=== PATIENT | female | born 1960 | race Caucasian/White ===

== ENCOUNTER 2018-05-27 00:56 | Outpatient (CLI) | payer OTHER, SELFPAY ==
--- NOTE | 2018-05-27 12:16 | DI.US_ITS ---
SYMPTOMS/DIAGNOSIS: RT LEG LUMP, ? THROMBOPHLEBITIS, SWELLING, M79.89 RIGHT LOWER EXTREMITY ULTRASOUND: The deep veins of the right lower extremity show normal compression augmentation and color flow. No evidence of a deep venous thrombus is seen. The visualized portions of the greater saphenous vein is patent without evidence of thrombus. Color flow is seen within this portion of the greater saphenous vein. There are varicose veins seen in the subcutaneous tissues of the calf. These appear patent with normal blood flow and compression. No thrombus is seen internally. IMPRESSION: No evidence of a right lower extremity deep venous thrombus or superficial thrombophlebitis.
== END 2018-05-27 01:16 ==
PROVIDERS: PCP Family Medicine; Visit Provider Family Medicine
DX: R22.41 Localized swelling, mass and lump, right lower limb (principal); M79.89 Other specified soft tissue disorders
CPT/HCPCS: 93971

== ENCOUNTER 2019-01-26 00:25 | Outpatient (CLI) | payer OTHER, SELFPAY ==
--- NOTE | 2019-01-26 15:30 | DI.MAMMO_ITS ---
SYMPTOMS/DIAGNOSIS: SCREENING, Z12.31 MAMMOGRAM: Mammograms were interpreted according to the usual protocol including computer analysis with CAD system, tomosynthesis and C view imaging. The breasts are heterogeneously dense. No dominant mass or clumped microcalcification is identified in either breast. The current examination is compared with previous examinations including January 2017 and there has been no gross interval change in appearance in comparison with the previous studies. CONCLUSION: No specific evidence of malignancy at this time. Routine screening examinations are suggested at yearly intervals in this age group according to the ACS/ACR guidelines. Category I. Breast density Category C. MQSA ASSESSMENT OF FINDINGS: Negative. Category 1. Patient will receive a letter notifying them of these results. Bi-RADS category C. The breasts are heterogeneously dense, which may obscure small masses.
== END 2019-01-26 00:45 ==
PROVIDERS: PCP Family Medicine; Visit Provider Family Medicine
DX: Z12.31 Encounter for screening mammogram for malignant neoplasm of breast (principal)
CPT/HCPCS: 77063; 77067

== ENCOUNTER 2019-07-29 07:29 | Outpatient (CLI) | payer OTHER, SELFPAY ==
[2019-07-29 07:55] LABS: HCT 42.5 % (36.0-46.0); HGB 13.9 g/dL (12.0-15.5); Mean Corp. HGB Concentration 32.7 g/dL (32.0-36.0); Mean Corpuscular Hemoglobin 31.7 pg (27.0-33.0); Mean Corpuscular Volume 96.8 fL (80-95); Mean Platelet Volume 10.2 fL (8.0-11.0); Platelet Count 261 x1000/uL (130-400); RBC 4.39 m/cumm (4.00-5.20); RBC Distribution Width 12.6 % (11.7-14.6)
[2019-07-29 08:46] LABS: Calculated LDL 100 mg/dL; Cholesterol 190 mg/dL (50-200); Glucose 100 mg/dL (70-100); HDL Cholesterol 76 mg/dL (40-60); Triglyceride 74 mg/dL (30-150)
== END 2019-07-29 07:49 ==
PROVIDERS: PCP Family Medicine; Visit Provider Family Medicine
DX: I48.91 Unspecified atrial fibrillation (principal); R53.83 Other fatigue; R73.9 Hyperglycemia, unspecified
CPT/HCPCS: 36415; 80061; 82947; 85027

== ENCOUNTER 2019-09-18 07:20 | Emergency (ER) | payer OTHER, SELFPAY ==
[2019-09-18 07:26] VITALS: BP 127/80; PULSE 76; RESP 18; TEMP 36.4; O2SAT 97
--- NOTE | 2019-09-18 07:40 | W.ED.GENAD ---
Discharge Plan Disposition Patient Disposition: HOME Condition: Good Discharge Details Chief Complaint: EarProblem Clinical Impression: URI with cough and congestion, Serous otitis media Primary Care Provider: Robb Esparza ED Provider: Arsh Perez Home Meds and New Rx's Prescriptions: Continued metoprolol succinate 50 mg tablet extended release 24 hr 50 mg PO DAILY Qty: 90 RF: 3 sennosides-docusate sodium [Senokot-S] 1 EACH tablet 1 - 2 tab-cap PO HS PRN RF: 0 ergocalciferol (vitamin D2) 2,000 UNIT tablet 2,000 unit PO DAILY RF: 0 aspirin [Aspir-81] 81 MG tablet,delayed release (DR/EC) 81 mg PO DAILY Qty: 90 RF: 0 Prempro 0.625-2.5 mg tablet 1 tab PO DAILY Qty: 90 RF: 3 ibuprofen 600 MG tablet 600 mg PO QID PRN (Reason: PAIN/SWELLING) Qty: 30 RF: 0 Discharge Instructions Instructions: Upper Respiratory Infection (ED) Additional Instructions: Please use ibuprofen or acetaminophen for discomfort. Start retaking the Mucinex to help thin secretions. If not significantly better in the next couple days follow-up with primary care for recheck of ear. If significantly worse with high fever, uncontrolled pain, difficulty breathing, mental status changes please return to ED. Referrals: Robb Esparza. [Primary Care Provider] - Medical Decision Making Patient with viral URI and serous otitis that I am not convinced that is bacterial in nature. A lot of her problem is likely related to eustachian tube dysfunction. She has history of PSVT and cannot take Sudafed or phenylephrine. She had been trying Mucinex but stopped it a few days ago. We will restart that. We will also have her use Tylenol and Motrin for pain and discomfort. If not significantly better in the next couple days we will have her follow-up with primary care for recheck. If significantly worse with high fevers, worsening pain, mental status changes, return to ED. She is understanding and agreeable with plan. HPI General Mode of arrival: ambulatory. Date/Time Provider Initiated Documentation: 09/18/19 07:35. Limitations to Documentation: no limitations. Information obtained by: patient and RN notes reviewed. HPI Narrative: Patient presents to ED with complaint of left ear pain that started within the last 24 hours. She has had a few days of URI with chest congestion, nasal congestion, cough. She thinks she has had fevers but every time she takes her temperature it is normal. She is having no shortness of breath. She has no sore throat. She has no chest pain. Related Data Home Medications Medication Instructions Recorded Confirmed ibuprofen 600 mg PO QID PRN #30 tab 02/08/15 09/18/19 ergocalciferol (vitamin D2) 2,000 unit PO DAILY 03/05/15 09/18/19 sennosides-docusate sodium 1 - 2 tab-cap PO HS PRN tab-cap 03/05/15 09/18/19 [Senokot-S] aspirin [Aspir-81] 81 mg PO DAILY #90 tab-cap 11/30/17 09/18/19 metoprolol succinate 50 mg 50 mg PO DAILY #90 tab 01/21/19 09/18/19 tablet,extended release 24 hr conj estrogen-medroxyprogesterone 1 tab PO DAILY #90 tab-cap 06/14/19 09/18/19 0.625 mg-2.5 mg tablet Previous Rx's Medication Instructions Recorded ibuprofen 600 mg PO QID PRN #30 tab 02/08/15 aspirin [Aspir-81] 81 mg PO DAILY #90 tab-cap 11/30/17 metoprolol succinate 50 mg 50 mg PO DAILY #90 tab 01/21/19 tablet,extended release 24 hr conj estrogen-medroxyprogesterone 1 tab PO DAILY #90 tab-cap 06/14/19 0.625 mg-2.5 mg tablet Allergies Allergy/AdvReac Type Severity Reaction Status Date / Time No Known Allergies Allergy Unverified 09/18/19 07:30 General Stated Complaint: EarProblem KAMI: 4 Review of Systems ENT Ears, Nose, Mouth, and Throat: Reports otalgia, Reports nasal congestion, Reports nasal discharge, Reports sinus pressure and Denies sore throat Cardiovascular Cardiovascular: Denies dyspnea Respiratory Respiratory: Reports cough and Denies dyspnea [facility] Medical History PSVT (paroxysmal supraventricular tachycardia) (Acute) Surgical History section Diagnostic Laproscopy [facility]; 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: three or more times per week How often do you get together with friends or relatives?: three or more times per week How often do you attend pentecostal or anabaptism services?: 1-3 times per year Do you belong to any clubs or organized social groups?: yes Panel score (0-1 are the most socially isolated patients): 3 What type of physical activity do you participate in: walking Duration: 15-30 minutes/day Frequency: 1-2 times per week Lucy/Druze: Yazdanism Special lucy needs: No Seatbelt use: always Helmet use: Yes Helmet use: always 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 Normal vitals and room air pulse oximetry. Const: WDWN female in NAD. HEENT: NC/AT. Normal facial exam. Right TM is clear with no fluid. Left TM also clear but definitely has fluid behind the drum with mild erythema. Oropharynx without erythema or exudate. Eyes: Normal conjunctiva and sclera. Neck: Supple. Trachea midline. Very mild anterior adenopathy. Lungs: Normal respiratory effort. Lungs are clear. Cor: RRR without murmur/gallop. Neuro: A+O x 3. CN grossly in tact. Good strength and no focal deficit. Course Vital Signs Vital signs: Vital Signs Temperature 97.5 F L 09/18/19 07:26 Pulse 76 09/18/19 07:26 Respiratory Rate 18 09/18/19 07:26 Blood Pressure 127/80 09/18/19 07:26 Pulse Oximetry 97 09/18/19 07:26 Temperature 97.5 F L 09/18/19 07:26 Temperature Source Temporal Artery Scan 09/18/19 07:26 Pulse 76 09/18/19 07:26 Respiratory Rate 18 09/18/19 07:26 Respiratory Effort Non-Labored 09/18/19 07:34 Blood Pressure 127/80 09/18/19 07:26 Pulse Oximetry 97 09/18/19 07:26 Oxygen Delivery Method Room Air 09/18/19 07:26 Oxygen Flow Rate 0 09/18/19 07:26 Pain Level 3 09/18/19 07:34
== END 2019-09-18 07:59 | disposition home or self-care (01) ==
LOC: ER 07:56
PROVIDERS: Emergency Provider Emergency Medicine; PCP Family Medicine
DX: H65.192 Other acute nonsuppurative otitis media, left ear (principal); J06.9 Acute upper respiratory infection, unspecified; I47.1 Supraventricular tachycardia
CPT/HCPCS: 99282

== ENCOUNTER 2020-09-20 11:45 | Outpatient (REF) | payer OTHER, SELFPAY ==
--- NOTE | 2020-09-20 11:15 | PAPFT_PTH ---
PATIENT: Ashlyn Nava LOC: [facility] U#:[id number] AGE/SX: 60/F ROOM: RE09/20/[address]: Symone Ruggiero DO : 1960 BED: DIS: 09/20/2020 SPEC #: [id number] RECD: 09/20/20 12:48 STATUS: BRYAN REQ #: [id number] ANAIS: 09/20/20 11:[address]: Symone Ruggiero DEPT: [facility] Cytology RECD BY: Corrie Adams ENTERED: 09/20/20 12:49 SP TYPE: PAPFT OTHR DR: Robb Esparza MD Tissues: 1 - CX/ENDOCX FOR PAP SMEARS Procedures: PAP THIN PREP/UVM Screening HPV DNA PROBE Comments: [id number]
== END 2020-09-20 12:05 ==
LOC: LBN 11:45
PROVIDERS: PCP Family Medicine; Visit Provider Obstetrics & Gynecology
DX: Z12.4 Encounter for screening for malignant neoplasm of cervix (principal); Z11.51 Encounter for screening for human papillomavirus (HPV)
CPT/HCPCS: 88142; 87624

== ENCOUNTER 2021-07-10 02:14 | Outpatient (CLI) | payer OTHER, SELFPAY ==
--- NOTE | 2021-07-10 08:15 | DI.MAMMO_ITS ---
Exam(s) MAMMO SCREENING EXAM: MAMMO SCREENING CLINICAL HISTORY: screening,WELL WOMAN EXAM,Z12.39,Z01.419. TECHNIQUE: Bilateral full field digital CC and MLO mammographic images were obtained with 3D tomosyn thesis and utilizing computer aided detection (CAD). COMPARISON: Prior mammograms dating back to 2013, the most recent being January 2019. FINDINGS: Fibroglandular tissue pattern is again noted be moderately dense, this decreasing the sensitivity of the mammogram for finding hidden underlying lesions. Towards the lateral aspect of left breast there is an asymmetric density-possible nodule located 7 cm in from nipple, measuring approximately 10 x 10 millimeters Supa compression view recommended. In the right breast there is an asymmetric nodular density noted medially, located approximately 8 cm in from the nipple and measuring approximately 6 x 6 millimeters. Spot compression view recommended . There are no malignant-appearing microcalcification groups is region or elsewhere in either breast . There is no significant architectural distortion nor skin thickening-retraction. IMPRESSION: Moderately dense bilateral fibroglandular tissue. Suggestion bilateral nodules. Spot compression vi ews as well as ultrasound both breasts recommended. BI-RADS Category 0 - Assessment Incomplete: Need additional imaging evaluation Breast Density - Category C - Heterogeneously dense Breast density Category C or D implies that the patient has dense breast tissue. Dense breast tissue can make it harder to find cancer on a mammogram. Dense breast tissue is also associated with an incr eased risk of breast cancer. This information about the result of the mammogram report was provided to the patient to raise their awareness. Use this report when you speak with the patient about their risks for breast cancer, which includes their family history. At that time, you may recommend additional screening tests (Ultrasoun d or MRI) as these tests may add significant information. A negative radiographic report should not delay biopsy if a dominant or clinically suspicious mass is present. Up to ten percent of cancers are not identified on mammography. A negative report may reinforce clinical impression. Adenosis and dense breasts may obscure an underlying neoplasm. False positive reports average 6 to 10%. Patient will receive a letter notifying them of these results.
== END 2021-07-10 02:34 ==
PROVIDERS: PCP Family Medicine; Visit Provider Obstetrics & Gynecology
DX: Z12.31 Encounter for screening mammogram for malignant neoplasm of breast (principal); R92.8 Other abnormal and inconclusive findings on diagnostic imaging of breast
CPT/HCPCS: 77063; 77067

== ENCOUNTER 2021-07-23 00:57 | Outpatient (CLI) | payer OTHER, SELFPAY ==
--- NOTE | 2021-07-23 14:30 | DI.US_ITS ---
Exam(s) US BREAST LT COMPLETE US BREAST RT COMPLETE MG MAMMO SCREEN CALL BACK BI EXAM: MG MAMMO SCREEN CALL BACK BI and bilateral breast ultrasound CLINICAL HISTORY: F/U MAMMO LT ASYMETRIC DENSITY, ? NODULE,RT BREAST ASYMMETRIC NODULAR DENSI. TECHNIQUE: Craniocaudal and mediolateral oblique Full Field Digital Mammography views of the bilater al breast with Computer Aided Diagnosis followed by Tomosynthesis and bilateral breast ultrasound. COMPARISON: Priors available for comparison. FINDINGS: Mammography/Tomosynthesis: Masses/Architectural Distortion: The well-circumscribed nodule in the outer left breast persists on t he additional views. The nodule in the medial right breast is not persist on the additional views. Microcalcifictions: No suspicious pleomorphic-type are seen. Skin Thickening/Nipple Retraction: None. Bilateral breast US: Echotexture: Normal appearance of the glandular tissue. Shadowing: No suspicious foci. Cyst: In the right breast, the medial half of the breast was evaluated. There is a 0.4 x 0.3 x 0.3 c m septated cyst at the 12 o'clock position 2 cm from the nipple. In the left breast, the outer half of the breast was evaluated. There is a simple 0.3 x 0.3 x 0.4 cm cyst at the 1 o'clock position 2 c m from the nipple. There is a simple cyst measuring 0.9 x 0.4 x 1.1 cm at the 2 o'clock position 3 c m from the nipple. There is a complex cyst measuring 1.2 x 0.6 x 0.9 cm at the 2 o'clock position 3 cm from the nipple. Solid lesions: None seen. Ductal dilation: None. IMPRESSION: 1. No evidence of malignancy is noted. 2. Unless there is more urgent need, follow-up screening mammography is recommended, as per [employer] guidelines. 3. The findings were discussed with the patient on the date of the examination. BI-RADS Category 2 - Benign Findings Breast Density - Category C - Heterogeneously dense Breast density Category C or D implies that the patient has dense breast tissue. Dense breast tissue can make it harder to find cancer on a mammogram. Dense breast tissue is also associated with an incr eased risk of breast cancer. This information about the result of the mammogram report was provided to the patient to raise their awareness. Use this report when you speak with the patient about their risks for breast cancer, which includes their family history. At that time, you may recommend additional screening tests (Ultrasoun d or MRI) as these tests may add significant information. A negative radiographic report should not delay biopsy if a dominant or clinically suspicious mass is present. Up to ten percent of cancers are not identified on mammography. A negative report may reinforce clinical impression. Adenosis and dense breasts may obscure an underlying neoplasm. False positive reports average 6 to 10%. Patient will receive a letter notifying them of these results.
== END 2021-07-23 01:17 ==
PROVIDERS: PCP Family Medicine; Visit Provider Obstetrics & Gynecology
DX: Z12.31 Encounter for screening mammogram for malignant neoplasm of breast (principal); R92.8 Other abnormal and inconclusive findings on diagnostic imaging of breast; N60.11 Diffuse cystic mastopathy of right breast; N60.12 Diffuse cystic mastopathy of left breast
CPT/HCPCS: 76642; 77063; 77067

== ENCOUNTER → 2022-02-27 09:55 | Outpatient (CLI) | payer OTHER, SELFPAY ==
--- NOTE | 2022-02-27 06:45 | DI.RAD_ITS ---
Exam(s) XR CHEST 2V PA LATERAL EXAM: XR CHEST 2V PA LATERAL CLINICAL HISTORY: DYSPNEA ON EXERTION, cough with phlegm,R05.3. TECHNIQUE: 2D digital imaging was performed. COMPARISON: CR PORTABLE CHEST ONE VIEW from 02/23/2017 FINDINGS: 2 views: Bidirectional thoracolumbar scoliosis again noted. This is convex right in the thoracic spine. Chlo ride fusion plate in the lower cervical spine noted, previously present. Heart size is normal. The mediastinum is not widened. Lungs are clear. No infiltrates nor pleural effusions. IMPRESSION: No acute pulmonary findings.No significant change from 02/23/2017 DATA REPOSITORY: RADIATION DOSE DELIVERED:
== END ==
PROVIDERS: PCP Family Medicine; Visit Provider Family Medicine
DX: R05.3 Chronic cough (principal); R06.00 Dyspnea, unspecified
CPT/HCPCS: 71046

== ENCOUNTER 2022-03-16 16:10 | Inpatient (IN) | payer OTHER, SELFPAY ==
[2022-03-16 16:28] VITALS: BP 144/84; PULSE 84; RESP 18; TEMP 36.6; O2SAT 99
--- NOTE | 2022-03-16 17:00 | DI.RAD_ITS ---
Exam(s) XR ABDOMEN FLAT UPRIGHT EXAM: XR ABDOMEN FLAT UPRIGHT CLINICAL HISTORY: bloating/distension. TECHNIQUE: 2D digital imaging was performed. COMPARISON: No exams were available for comparison FINDINGS: Two views-supine and upright: There are air-filled abnormal appearing small bowel loops. Some air is seen in the colon but nevert heless this may represent early developing obstruction. Cannot assess accurately for free air as the top of the right hemidiaphragm is not included in the fi eld of view. No obvious pneumatosis. Scoliosis convex left with rotational component in the lumbar spine. IMPRESSION: ileus versus developing small bowel obstruction. Follow-up upright image recommended which should in clude to a level just above the right hemidiaphragm to ensure that there is no free intraperitoneal a ir. DATA REPOSITORY: RADIATION DOSE DELIVERED:
--- NOTE | 2022-03-16 17:13 | W.ED.GENAD ---
Discharge Plan Disposition Patient Disposition: [facility] INPATIENT Condition: Stable Discharge Details Clinical Impression: Small bowel obstruction Primary Care Provider: Robb Esparza ED Provider: Abhishek Elise Home Meds and New Rx's Prescriptions: No Action sennosides-docusate sodium [Senokot-S] 1 EACH tablet 1 - 2 tab-cap PO HS PRN Label Comments: 01/09/17 not taking JESSICA ergocalciferol (vitamin D2) 2,000 UNIT tablet 2,000 unit PO DAILY aspirin [Aspir-81] 81 MG tablet,delayed release (DR/EC) 81 mg PO DAILY Qty: 90 0RF metoprolol succinate 50 mg tablet extended release 24 hr 50 - 100 mg PO DAILY Qty: 135 3RF Rx Instructions: alternate 50 mg/100 mg qod Prempro 0.625-2.5 mg tablet 1 tab PO DAILY Qty: 90 3RF dextroamphetamine-amphetamine [Adderall] 20 mg tablet 20 mg PO DAILY MDD 1 capsule Qty: 28 0RF ibuprofen 600 MG tablet 600 mg PO QID PRN (Reason: PAIN/SWELLING) Qty: 30 0RF Medical Decision Making 61-year-old female whose past surgical history includes and exploratory laparotomy. She states she was returning home from vacation on the [facility] when yesterday she developed abdominal pain and nausea. She was seen at an outlying emergency department in [facility] earlier this morning where she reports she had laboratory, ultrasound and CT imaging. She was diagnosed with a small bowel obstruction, improved with therapy and was discharged in order to return to home. She states approximately 6 hours ago her symptoms returned with upper abdominal pain nausea and bloating. She arrives to the ER afebrile and interactive. Her presentation is most consistent with bowel obstruction. Given the report of previous work-up earlier in the day, laboratories were obtained and patient referred for x-ray. CBC reveals a white count of 11, hematocrit 46, platelets 279. Chemistries are reassuring. X-ray shows evidence of small bowel obstruction. Case discussed with Dr. Dover. We will proceed with CT imaging. Patient will require admission. HPI General Mode of arrival: ambulatory. Date/Time Provider Initiated Documentation: 03/16/22 16:58. Limitations to Documentation: no limitations. Information obtained by: patient. History of Present Illness 61 year old F presents to the emergency department with the chief complaint of Abdominal bloating and pain with nausea, described as moderate, and is localized to the abdomen. Patient abdomen. Patient started experiencing this hour(s) and it has been constant. No relieving factors improve symptom(s), No exacerbating factors reported . Patient notes loss of appetite; denies fever/chills. Patient did receive the following treatments prior to arrival, none Related Data Home Medications Medication Instructions Recorded Confirmed ibuprofen 600 mg tablet 600 mg PO QID PRN PAIN/SWELLING 02/08/15 03/16/22 #30 tabs ergocalciferol (vitamin D2) 50 mcg 2,000 unit PO DAILY 03/05/15 03/16/22 (2,000 unit) tablet sennosides 8.6 mg-docusate sodium 1 - 2 tab-cap PO HS PRN 03/05/15 03/16/22 50 mg tablet (Senokot-S) aspirin 81 mg tablet,delayed 81 mg PO DAILY #90 tab-caps 11/30/17 03/16/22 release (Aspir-) metoprolol succinate 50 mg 50 - 100 mg PO DAILY #135 tabs 12/30/21 03/16/22 tablet,extended release 24 hr conj estrogen-medroxyprogesterone 1 tab PO DAILY #90 tab-caps 01/13/22 03/16/22 0.625 mg-2.5 mg tablet (Prempro) dextroamphetamine-amphetamine 20 20 mg PO DAILY #28 tabs 02/11/22 03/16/22 mg tablet (Adderall) Previous Rx's Medication Instructions Recorded ibuprofen 600 mg tablet 600 mg PO QID PRN PAIN/SWELLING 02/08/15 #30 tabs aspirin 81 mg tablet,delayed 81 mg PO DAILY #90 tab-caps 11/30/17 release (Aspir-) metoprolol succinate 50 mg 50 - 100 mg PO DAILY #135 tabs 12/30/21 tablet,extended release 24 hr conj estrogen-medroxyprogesterone 1 tab PO DAILY #90 tab-caps 01/13/22 0.625 mg-2.5 mg tablet (Prempro) dextroamphetamine-amphetamine 20 20 mg PO DAILY #28 tabs 02/11/22 mg tablet (Adderall) Allergies Allergy/AdvReac Type Severity Reaction Status Date / Time No Known Allergies Allergy Verified 03/16/22 16:32 General Stated Complaint: Abd Prob KAMI: 2 Review of Systems Narrative: 6 systems reviewed and otherwise negative PFSH All Active Problems (Updated 03/16/22 @ 19:08 by Abhishek Elise MD) Small bowel obstruction (Acute) Breast cancer screening (Acute) Well woman exam with routine gynecological exam (Acute) Overweight (Acute) PSVT (paroxysmal supraventricular tachycardia) (Acute) Atrial fibrillation with rapid ventricular response (Acute) Hypokalemia (Acute) History of snoring (Acute) Well adult exam (Chronic) Surgical History section Diagnostic Laproscopy [facility]; 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 Daughter No problems noted. Social History Smoking/Tobacco Use Status: Never Second Hand Exposure: Yes Smoking risk assessment performed?: Yes Alcohol Intake: current Alcohol Intake frequency: a few times a month Alcohol type: wine Drug use: Never Substance use type: does not use Caregiver/Support person: No Household members: spouse Housing: house Communication Needs: None Do you need help understanding health information?: Never Pets and animals: No Sexually active: Yes Do you think of yourself as: straight/heterosexual Current gender identity: female What is your relationship status?: How often do you talk on the phone with friends or family?: three or more times per week How often do you get together with friends or relatives?: three or more times per week How often do you attend zoroastrianism or zoroastrian services?: 1-3 times per year Do you belong to any clubs or organized social groups?: yes Panel score (0-1 are the most socially isolated patients): 3 What type of physical activity do you participate in: walking Duration: 15-30 minutes/day Frequency: 3-4 times per week Lucy/Alevism: No preference Special lucy needs: No Seatbelt use: always Helmet use: Yes Helmet use: always 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 Pleasant, well groomed, interactive. HEAD: Normocephalic, atraumatic ENT: Mucous membranes moist, oropharynx unremarkable, External ear exam unremarkable EYES: PERRL, EOMI NECK: Full ROM, no YAZAN, no menigismus CHEST/RESP: Nontender, clear to auscultation bilateral, no wheeze/rhonchi/rales CARDIOVASCULAR: RRR, no murmur, rub donna. 2+ Rad pulse bilateral ABDOMEN: Soft, distended, diffusely tender but without rebound present, no mass. Decreased bowel sounds EXT: Full ROM, no edema, no rash Neuro: Grossly normal neurologic exam, conversant, interactive. Psych: Speech fluent, thoughts congruent, affect normal Course Vital Signs Vital signs: Vital Signs Temperature 36.6 C 03/16/22 16:28 Pulse 84 03/16/22 16:28 Respiratory Rate 18 03/16/22 16:28 Blood Pressure 144/84 H 03/16/22 16:28 Pulse Oximetry 99 03/16/22 16:28 Temperature 36.6 C 03/16/22 16:28 Temperature Source Temporal Artery Scan 03/16/22 16:28 Pulse 84 03/16/22 16:28 Respiratory Rate 18 03/16/22 16:28 Respiratory Effort 03/16/22 16:49 Blood Pressure 144/84 H 03/16/22 16:28 Blood Pressure Position Sitting 03/16/22 16:28 Pulse Oximetry 99 03/16/22 16:28 Oxygen Delivery Method Room Air 03/16/22 16:28 Oxygen Flow Rate 0 03/16/22 16:28 Pain Level 8 03/16/22 16:28
[2022-03-16 17:28] LABS: Abs Immature Grans 0.04 10^3/uL (0.0-0.06); Absolute Basophil Count 0.03 10^3/uL (0.0-0.2); Absolute Eosinophil Count 0.11 10^3/uL (0.0-0.7); Absolute Lymphocyte Count 1.04 10^3/uL (1.2-3.4); Basophils % 0.3; HCT 46.8 % (36.0-46.0); HGB 15.5 g/dL (11.2-15.7); Immature Grans % 0.4; Lymphocytes % 9.2; MCHC 33.1 % (32.0-36.0); MCV 97 fL (80-95); MPV 10.2 fL (8.0-11.0); Monocytes % 8.8; Neutrophils % 80.3; Platelet Count 279 10^3/uL (130-400); RBC 4.84 10^6/uL (3.93-5.22); RDW-SD 42.9 fL; WBC 11.34 10^3/uL (4.4-10.8)
[2022-03-16 17:33] LABS: Absolute Neutrophil Count 9.11 10^3/uL (1.2-6.7)
[2022-03-16] MEDS: Ondansetron 4 MG/2 ML VIAL IVP ×2 (17:43→22:06)
[2022-03-16] MEDS: Ketorolac 30 MG/ML VIAL IVP (17:43)
[2022-03-16 17:47] LABS: ALT 27 U/L (14-59); AST 13 U/L (15-37); Albumin 4.3 g/dL (3.4-5.0); Alkaline Phosphatase 66 U/L (46-116); Anion Gap 10.9 mmol/L (3-11); BUN 14 mg/dL (7-18); Bilirubin, Total 1.3 mg/dL (0.2-1.0); CO2 28.1 mmol/L (21.0-32.0); Calcium 9.9 mg/dL (8.5-10.1); Chloride 97 mmol/L (98-107); Estimated GFR 56.75 (mL/min/1.73m2); Glucose 110 mg/dL (74-106); Lipase 52 U/L (73-393); Magnesium 2.2 mg/dL (1.8-2.4); Potassium 3.5 mmol/L (3.5-5.1); Sodium 136 mmol/L (136-145); Total Protein 8.2 g/dL (6.4-8.2)
[2022-03-16 18:06] LABS: Source Nasal/Nares
[2022-03-16 18:16] LABS: Bilirubin Small (Negative); Blood Negative (Negative); Clarity Sl Cloudy (Clear); Glucose Negative (Negative); Ketones 40 mg/dL (Negative); Leukocyte Esterase Negative (Negative); Nitrite Negative (Negative); Specific Gravity >= 1.030 (1.005-1.025); Urobilinogen 0.2 EU/dL (Up TO 0.2); pH 5.5 (5-8)
[2022-03-16 19:00] LABS: COVID-19 PCR Negative (Negative)
--- NOTE | 2022-03-16 19:05 | DI.VRAD_ITS ---
PROCEDURE INFORMATION: Exam: XR Abdomen Exam date and time: 03/16/2022 18:52 Age: 61 years old Clinical indication: Patient HX: Bloating/distension TECHNIQUE: Imaging protocol: Radiologic exam of the abdomen. Views: 2 Views. Upright and supine views. COMPARISON: CT ABD PELVIS WITH CONTRAST 09/27/2015 13:04 FINDINGS: Gastrointestinal tract: Mild gaseous distension of mid small bowel. Normal stool burden in the colon without pathologic dilation. Intraperitoneal space: No free air. Organs: There is either faint contrast being excreted by the left kidney or small stones projecting over left-sided calices. Bones/joints: Moderate lumbar levoscoliosis. IMPRESSION: Small bowel distension can be seen in developing ileus or obstruction. Dictated and Authenticated by: Angy Barrow MD. Ordering:KAISER Weiss MD
[2022-03-16] MEDS: Omnipaque 350 MG/ML 100 ML BTL IJ (19:21)
[2022-03-16] MEDS: Normal Saline 1,000 ML 125 ML IV (21:05)
[2022-03-16] MEDS: Normal Saline Flush 10 ML SYR IVP ×2 (21:55→23:57)
[2022-03-16] MEDS: MORPHine 2 MG/ML SYR IVP (21:56)
[2022-03-16] MEDS: Enoxaparin 40 MG/0.4 ML SYR SC (22:48)
[2022-03-16 22:49] VITALS: BP 117/71; PULSE 65; RESP 16; TEMP 36.8; O2SAT 96
[2022-03-16 22:57] VITALS: BP 117/71; PULSE 65
[2022-03-16 23:03] VITALS: BP 117/71; PULSE 65; RESP 16; TEMP 36.8; O2SAT 96
--- NOTE | 2022-03-16 23:07 | NUR.NOTE ---
Andrew Dean PT DAUGHTER WANTS HER PHONE NUMBER LEFT [phone] Nursing Note:
[2022-03-16] MEDS: Lactated Ringers 1,000 ML 125 ML IV (23:27)
[2022-03-16] MEDS: ACETAMINOPHEN 1,000 MG/100 ML BTL 400 MG IVPB (23:57)
[2022-03-17] VITALS (15 sets, daily range): BP systolic 115–149; BP diastolic 65–95; PULSE 66–101; RESP 14–18; TEMP 36.6–37.5; O2SAT 95–97
[2022-03-17] MEDS: MORPHine 2 MG/ML SYR IVP ×2 (04:06→06:58)
[2022-03-17 06:23] LABS: Anion Gap 9.9 mmol/L (3-11); BUN 18 mg/dL (7-18); CO2 26.1 mmol/L (21.0-32.0); CREATININE 0.8 mg/dL (0.55-1.02); Calcium 8.9 mg/dL (8.5-10.1); Chloride 99 mmol/L (98-107); Glucose 112 mg/dL (74-106); Magnesium 1.8 mg/dL (1.8-2.4); Potassium 3.7 mmol/L (3.5-5.1); Sodium 135 mmol/L (136-145)
[2022-03-17] MEDS: Metoprolol 5 MG/5 ML VIAL IVP ×3 (07:45→19:45)
[2022-03-17] MEDS: Normal Saline Flush 10 ML SYR IVP ×4 (07:46→23:30)
[2022-03-17] MEDS: Lactated Ringers 1,000 ML 125 ML IV ×2 (08:02→18:47)
--- NOTE | 2022-03-17 11:08 | W.PM.HP.N ---
Date of service: 03/17/22 Time of Service: 11:08 Assessment and Plan Assessment and plan (1) Small bowel obstruction: Status: Acute Assessment and plan: NGT placement gastrograffin in am supportive care should resolve w/ conservative management. No fever/elevated WBC/peritonitis History of Present Illness Narrative: Patient had a stat and has vertical midline scar. She has had problems with adhesions in the past. She had a laparoscopy and lysis of adhesions in the past. This is otherwise her first bowel obstruction. She had been on medication and do a long distance drive, which she normally does not do. She started having pain and bloating and nausea on Thursday. She came to the ER on Thursday and had a CT scan in [facility], which showed a bowel obstruction. She drove back to [facility] H/VT. Flatplate ER of the abdomen shows continued bowel obstruction. She is not passing gas today. She is not vomited. She has not wanted an NG tube placed. She still feels very distended and nauseous and feel like she needs to vomit. We did have a discussion about what NG tube do and why they are necessary. She does have a few BS, and I think her obstruction will resolved w/ conservative care. 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 Daughter No problems noted. Social History Smoking/Tobacco Use Status: Never Second Hand Exposure: Yes Smoking risk assessment performed?: Yes Alcohol Intake: current Alcohol Intake frequency: a few times a month Alcohol type: wine Drug use: Never Substance use type: does not use Caregiver/Support person: No Household members: spouse Housing: house Communication Needs: None Do you need help understanding health information?: Never Pets and animals: No Sexually active: Yes Do you think of yourself as: straight/heterosexual Current gender identity: female What is your relationship status?: How often do you talk on the phone with friends or family?: three or more times per week How often do you get together with friends or relatives?: three or more times per week How often do you attend oriental orthodox or sabianist services?: 1-3 times per year Do you belong to any clubs or organized social groups?: yes Panel score (0-1 are the most socially isolated patients): 3 What type of physical activity do you participate in: walking Duration: 15-30 minutes/day Frequency: 3-4 times per week Lucy/Yazdanism: No preference Special lucy needs: No Seatbelt use: always Helmet use: Yes Helmet use: always Drive intox or ride w/intox driver examiner: No Do you feel safe at home: Yes Do you feel safe in your relationship?: Yes Meds Allergies and Home Medications Allergies Allergy/AdvReac Type Severity Reaction Status Date / Time No Known Allergies Allergy Verified 03/16/22 16:32 Home Medications Medication Instructions Recorded Confirmed Type ibuprofen 600 mg tablet 600 mg PO QID PRN PAIN/SWELLING 02/08/15 03/16/22 Rx #30 tabs ergocalciferol (vitamin D2) 50 mcg 2,000 unit PO DAILY 03/05/15 03/16/22 History (2,000 unit) tablet sennosides 8.6 mg-docusate sodium 1 - 2 tab-cap PO HS PRN 03/05/15 03/16/22 History 50 mg tablet (Senokot-S) aspirin 81 mg tablet,delayed 81 mg PO DAILY #90 tab-caps 11/30/17 03/16/22 Rx release (Aspir-) metoprolol succinate 50 mg 50 - 100 mg PO DAILY #135 tabs 12/30/21 03/16/22 Rx tablet,extended release 24 hr conj estrogen-medroxyprogesterone 1 tab PO DAILY #90 tab-caps 01/13/22 03/16/22 Rx 0.625 mg-2.5 mg tablet (Prempro) dextroamphetamine-amphetamine 20 20 mg PO DAILY #28 tabs 02/11/22 03/16/22 Rx mg tablet (Adderall) Exam Narrative Exam Narrative: PHYSICAL EXAM GENERAL APPEARANCE: Alert, healthy appearance, oriented, in no acute distress SKIN: No rashes.? No breakdown HYDRATION: Well hydrated HEAD, EYES, EARS, NECK, THROAT: Head is normocephalic, pupils equal, round, reactive to light and accommodation, ocular movement intact, sclera clear and no jaundice. ?Dentition intact. No sore throat.? No jaw pain. NECK: Supple, Trachea midline. No JVD. LUNGS: normal respiration/nl chest excursion. ?Clear to auscultation B/l no R/R/W ?HEART: Regular rate and rhythm, EXTREMITY: No edema or cyanosis? no leg pain, redness, swelling.? No IV infiltration ABDOMEN: RUQ tenderness to palpation, no masses or distention, no hernias. no peritonitis. minimal BS NEURO: no focal neuro deficits. Results Labs Result diagrams: 03/16/22 17:20 03/17/22 05:44 Labs: Laboratory Results - last 24 hr 03/16/22 03/16/22 03/16/22 17:20 17:20 18:00 WBC 11.34 H RBC 4.84 Hgb 15.5 Hct 46.8 H MCV 97 H MCH 32.0 MCHC 33.1 RDW 12.0 Plt Count 279 MPV 10.2 Immature Gran % 0.4 Neutrophils % 80.3 Lymphocytes % 9.2 Monocytes % 8.8 Eosinophils % 1.0 Basophils % 0.3 Nucleated RBC % 0.0 Absolute Neutrophils 9.11 H Absolute Lymphocytes 1.04 L Absolute Monocytes 1.00 H Absolute Eosinophils 0.11 Absolute Basophils 0.03 Sodium 136 Potassium 3.5 Chloride 97 L Carbon Dioxide 28.1 Anion Gap 10.9 BUN 14 Creatinine 1.0 Estimated GFR/1.73 m2 56.75 Glucose 110 H Calcium 9.9 Magnesium 2.2 Total Bilirubin 1.3 H AST 13 L ALT 27 Alkaline Phosphatase 66 Total Protein 8.2 Albumin 4.3 Lipase 52 Urine Color Urine Clarity Urine pH Ur Specific [place] Urine Protein Urine Ketones Urine Blood Urine Nitrite Urine Bilirubin Urine Urobilinogen Ur Leukocyte Esterase Urine Glucose COVID-19 Source Nasal/Nares SARS-CoV-2 (PCR) Negative 03/16/22 03/17/22 18:00 05:44 WBC RBC Hgb Hct MCV MCH MCHC RDW Plt Count MPV Immature Gran % Neutrophils % Lymphocytes % Monocytes % Eosinophils % Basophils % Nucleated RBC % Absolute Neutrophils Absolute Lymphocytes Absolute Monocytes Absolute Eosinophils Absolute Basophils Sodium 135 L Potassium 3.7 Chloride 99 Carbon Dioxide 26.1 Anion Gap 9.9 BUN 18 Creatinine 0.8 Estimated GFR/1.73 m2 >= 60.00 Glucose 112 H Calcium 8.9 Magnesium 1.8 Total Bilirubin AST ALT Alkaline Phosphatase Total Protein Albumin Lipase Urine Color Yellow Urine Clarity Sl Cloudy Urine pH 5.5 Ur Specific [place] >= 1.030 H Urine Protein Negative Urine Ketones 40 H Urine Blood Negative Urine Nitrite Negative Urine Bilirubin Small H Urine Urobilinogen 0.2 Ur Leukocyte Esterase Negative Urine Glucose Negative COVID-19 Source SARS-CoV-2 (PCR) Last Vital Signs Temp 37.1 C 03/17/22 07:40 Pulse 73 03/17/22 07:45 Resp 14 03/17/22 07:40 BP 115/70 03/17/22 07:45 Pulse Ox 95 03/17/22 07:40
[2022-03-17] MEDS: Lidocaine 2% Jelly 5 ML TUBE TP (11:23)
[2022-03-17] MEDS: Normal Saline 1,000 ML 1000 ML IV (11:24)
[2022-03-17] MEDS: ACETAMINOPHEN 1,000 MG/100 ML BTL 400 MG IVPB ×2 (11:38→23:30)
--- NOTE | 2022-03-17 12:15 | DI.RAD_ITS ---
Exam(s) XR ABDOMEN FLAT PLATE EXAM: XR ABDOMEN FLAT PLATE CLINICAL HISTORY: after 1 hour suction- NG placed. TECHNIQUE: 2D digital imaging was performed. COMPARISON: CR,XR XR ABDOMEN FLAT UPRIGHT from 03/16/2022 FINDINGS: Single supine view of the abdomen: There has been interval placement of an NG tube. Distal tip is in the stomach. There is still some air-filled small bowel loops in the central abdomen. This is difficult to compare without an upright view. Also cannot determine if there is free air without an upright view. Scoliosis convex left in the lumbar spine again noted. IMPRESSION: DATA REPOSITORY: RADIATION DOSE DELIVERED:
--- NOTE | 2022-03-17 12:52 | DI.VRAD_ITS ---
Addendum created by Merrill Harris DO on 03/17/2022 12:55:17 PM EDT: Modification to findings and impression as follows: Findings: Tubes, catheters and devices: Esophagogastric tube is present on 1 image and terminates over an expected location of the gastric lumen. This is on the image taken at 12:16:26. The esophagogastric tube is not visualized on the image taken at 12:18:35. Impression: Esophagogastric tube is seen terminating over an expected location of the gastric lumen on 1 image. Possibly removed on follow-up image taken at 12:18:35. Initial report created on 03/17/2022 12:51:57 PM EDT: PROCEDURE INFORMATION: Exam: XR Abdomen Exam date and time: 03/17/2022 12:16 PM Age: 61 years old Clinical indication: Device placement; Gi device; Nasogastric tube; Patient HX: 1 hour post ng tube suction. TECHNIQUE: Imaging protocol: Radiologic exam of the abdomen. Views: Frontal supine view of the abdomen. 1 View. COMPARISON: CR XR ABDOMEN FLAT UPRIGHT 03/16/2022 6:52 PM FINDINGS: Tubes, catheters and devices: Esophagogastric tube terminates over an expected location of the gastric lumen. Lungs: Suspected atelectasis left lung base. Gastrointestinal tract: Nonobstructive bowel gas pattern. Bones/joints: no acute displaced fracture. IMPRESSION: Esophagogastric tube terminates over an expected location of the gastric lumen. Dictated and Authenticated by: Merrill Harris MD. Ordering:YUKI White MD
[2022-03-17] MEDS: Enoxaparin 40 MG/0.4 ML SYR SC (19:45)
[2022-03-18] VITALS (20 sets, daily range): BP systolic 114–154; BP diastolic 78–83; PULSE 73–133; RESP 16–19; TEMP 36.7–38; O2SAT 95–99
--- NOTE | 2022-03-18 | DI.RAD_ITS ---
Exam(s) XR ABDOMEN FLAT PLATE EXAM: XR ABDOMEN FLAT PLATE CLINICAL HISTORY: sbo. TECHNIQUE: 2D digital imaging was performed. COMPARISON: CR XR ABDOMEN FLAT PLATE from 03/18/2022 FINDINGS: 3 views NG tube has been reinserted. Stomach is distended. Oral contrast seen in duodenal and jejunal loops which are slightly dilated. No contrast seen in the colon. IMPRESSION: DATA REPOSITORY: RADIATION DOSE DELIVERED:
[2022-03-18] MEDS: Metoprolol 5 MG/5 ML VIAL IVP ×4 (02:34→19:59)
[2022-03-18] MEDS: Normal Saline Flush 10 ML SYR IVP ×6 (02:34→22:51)
[2022-03-18] MEDS: Lactated Ringers 1,000 ML 125 ML IV ×3 (02:41→21:07)
[2022-03-18 07:19] LABS: Anion Gap 13.5 mmol/L (3-11); BUN 14 mg/dL (7-18); CO2 22.5 mmol/L (21.0-32.0); CREATININE 0.6 mg/dL (0.55-1.02); Calcium 8.7 mg/dL (8.5-10.1); Chloride 100 mmol/L (98-107); Glucose 113 mg/dL (74-106); Magnesium 1.9 mg/dL (1.8-2.4); Potassium 3.3 mmol/L (3.5-5.1); Sodium 136 mmol/L (136-145)
[2022-03-18] MEDS: ACETAMINOPHEN 1,000 MG/100 ML BTL 400 MG IVPB (08:42)
--- NOTE | 2022-03-18 10:00 | DI.RAD_ITS ---
Exam(s) XR ABDOMEN FLAT PLATE EXAM: XR ABDOMEN FLAT PLATE CLINICAL HISTORY: sbo. TECHNIQUE: 2D digital imaging was performed. COMPARISON: CR,XR XR ABDOMEN FLAT PLATE from 03/17/2022 FINDINGS: AP supine view of the abdomen: Previously present NG tube is no longer seen. Oral contrast-Gastrografin is seen in the stomach, duodenum and proximal jejunal loops. These are mi ldly distended. IMPRESSION: DATA REPOSITORY: RADIATION DOSE DELIVERED:
--- NOTE | 2022-03-18 11:05 | W.PM.PROGNOT ---
Date of Service Date of service: 03/18/22 Time of Service: 11:05 Assessment and Plan Assessment and plan (1) Small bowel obstruction: Status: Acute Assessment and plan: NGT in place, 300cc in canister which increased to 600cc once the patient sat at the edge of the bed Last Bm was on Friday 03/16 Encouraged ambulation and sitting in the chair as tolerated Continue with pain control Will order benzocaine lozenges Continue supportive care Subjective Subjective Interval history since last seen: Arrive with the patient resting in bed. She reports she had nausea and vomiting last night. But none this morning. Patient states that the NG tube is very uncomfortable in the back of her throat she feels this is causing her to have stomach spasms. She states may have passed some gas last night however has not passed any gas today. She states that her abdomen does feel better and is less distended today. She Exam Const General: cooperative, healthy appearing and comfortable Orientation: alert and oriented x3 Resp Effort & Inspection: normal respiratory effort, no audible wheezes and no cough GI Inspection: normal to inspection Palpation: soft, no guarding and nontender Auscultation: absent bowel sounds Objective Last Vital Signs Temp 36.7 C 03/18/22 07:34 Pulse 79 03/18/22 08:45 Resp 18 03/18/22 07:34 BP 114/78 03/18/22 08:45 Pulse Ox 99 03/18/22 07:34 Laboratory Results - last 24 hr 03/18/22 06:32 Sodium 136 Potassium 3.3 L Chloride 100 Carbon Dioxide 22.5 Anion Gap 13.5 H BUN 14 Creatinine 0.6 Estimated GFR/1.73 m2 >= 60.00 Glucose 113 H Calcium 8.7 Magnesium 1.9
[2022-03-18] MEDS: POTASSIUM CHLORIDE 10 MEQ/100 ML BAG 100 MEQ IVPB ×2 (11:39→12:57)
--- NOTE | 2022-03-18 12:48 | INITIAL_ITS ---
- If Service Date Differs Date of service: 03/18/22 Time of Service: 12:48 Care Management Initial Assess REASON FOR HOSPITALIZATION:: SBO PAST MEDICAL HISTORY/PAST SURGICAL HISTORY:: All Active Problems (Updated 03/16/22 @ 19:08 by Abhishek Elise MD). Small bowel obstruction (Acute). Breast cancer screening (Acute). Well woman exam with routine gynecological exam (Acute). Overweight (Acute). PSVT (paroxysmal supraventricular tachycardia) (Acute). Atrial fibrillation with rapid ventricular response (Acute). Hypokalemia (Acute). History of snoring (Acute). Well adult exam (Chronic). Surgical History . section. 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 Spinal Fusion. 08/26; [employer]; C3-6 PREVIOUS FUNCTIONAL STATUS/SOCIAL/FAMILY SUPPORTS:: Ashlyn lives in [place] with her Eliceo. They have 5 grown children between them and 7 grandchildren. 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 She is independent at baseline and does not receive any community services. CURRENT FUNCTIONAL STATUS:: Ashlyn was sitting up in a chair when CM met with her. She was polite and agreeable to conversation. Ashlyn appeared to be very uncomfortable and admitted that the NG tube is irritating to her throat. She continues to have pain that is being managed with medication. She remains NPO. ADVANCE DIRECTIVES:: none on file Has patient been provided with info about the portal/API?: Yes Did the patient sign up for the portal?: Yes (previously) CODE STATUS:: Full Code INSURANCE COVERAGE / FINANCIAL ISSUES:: [employer] CURRENT HOME/COMMUNITY SERVICES/EQUIPMENT:: none PRIMARY CARE PHYSICIAN:: Robb Esparza POTENTIAL DISCHARGE NEEDS:: Follow up with surgeon, PCP and plan of care as prescribed PATIENT/FAMILY EDUCATION NEEDS:: Review of discharge instructions including medications, activity, diet, limitations, follow up plan and discuss Ask Me Three. TRANSPORTATION:: via private vehicle with family PLAN:: Ashlyn will meredithley be discharged home with no new services. She will follow up with her community providers and plan of care as prtescribed and transport with family. CM will continue to support Ashlyn and assess fdor discharge needs.
--- NOTE | 2022-03-18 17:15 | CHAPLAIN ---
I had brief visit with Ashlyn, a coworker from [employer]. Ashlyn was really not feeling well. I didn't stay long.
--- NOTE | 2022-03-18 19:09 | PDOC.CMIN ---
- If Service Date Differs Date of service: 03/18/22 Time of Service: 19:09
[2022-03-18] MEDS: Enoxaparin 40 MG/0.4 ML SYR SC (20:00)
[2022-03-18] MEDS: Ketorolac 15 MG/ML VIAL IVP (22:51)
[2022-03-18] MEDS: LORazepam 2 MG/ML VIAL 1 MG IVP (22:51)
[2022-03-19] VITALS (14 sets, daily range): BP systolic 122–164; BP diastolic 71–83; PULSE 74–106; RESP 18; TEMP 36.7–37.5; O2SAT 95–99
--- NOTE | 2022-03-19 | DI.RAD_ITS ---
Exam(s) XR ABDOMEN FLAT UPRIGHT EXAM: 2D digital imaging was performed. CLINICAL HISTORY: NG tube position and f/u SBO. COMPARISON: CR,XR XR ABDOMEN FLAT PLATE from 03/17/2022 CR XR ABDOMEN FLAT PLATE from 03/18/2022 CR XR ABDOMEN FLAT PLATE from 03/18/2022 TECHNIQUE: Supine and uprightviews of the abdomen were performed. FINDINGS: A nasogastric tube is again noted projected in the fundus of the stomach. Multiple other leads are c oiled over the right upper quadrant. There is no gross evidence of free air. The previously noted a dministered oral contrast is quite dilute and is faintly visible within loops of dilated small bowel. IMPRESSION: The administered oral contrast is quite dilute and loops of dilated small bowel with air-fluid levels are noted. DATA REPOSITORY: RADIATION DOSE DELIVERED:
[2022-03-19] MEDS: Metoprolol 5 MG/5 ML VIAL IVP ×4 (02:04→20:29)
[2022-03-19] MEDS: Lactated Ringers 1,000 ML 125 ML IV ×3 (04:31→22:42)
[2022-03-19 05:59] LABS: Platelet Count 310 10^3/uL (130-400)
[2022-03-19 06:17] LABS: Anion Gap 12.7 mmol/L (3-11); BUN 21 mg/dL (7-18); CO2 25.3 mmol/L (21.0-32.0); CREATININE 0.6 mg/dL (0.55-1.02); Chloride 99 mmol/L (98-107); Glucose 115 mg/dL (74-106); Magnesium 1.9 mg/dL (1.8-2.4); Sodium 137 mmol/L (136-145)
[2022-03-19] MEDS: Normal Saline Flush 10 ML SYR IVP ×3 (08:46→20:29)
--- NOTE | 2022-03-19 08:53 | PDOC.CMPRO ---
- If Service Date Differs Date of service: 03/19/22 Time of Service: 08:53 Care Management Progress Note S/O:Ashlyn was sitting up in a chair when CNM met with her. She still had an NGtube and was uncomfortable. Ashlyn spent much of the day ambulating in the [place] with her and stopped by CM's office at thre end of the day. She was smiling and showed CM that her tube had been removed but she remains NPO. A: Ashlyn was admitted on 03/16/22 with a SBO P:Ashlyn will likely be discharged home with no new services. She will follow up with her community providers and plan of care as prescribed and transport with family. CM will continue to support Ashlyn and assess for discharge needs.
--- NOTE | 2022-03-19 09:01 | W.PM.PROGNOT ---
Date of Service Date of service: 03/19/22 Time of Service: 09:01 Assessment and Plan Assessment and plan (1) Small bowel obstruction: Status: Acute Assessment and plan: NGT in place, output has been positional with output. With output increasing when she is sitting or standing. Awaiting abdominal xray from this morning to recheck NG tube placement (+) BM yesterday x 2 Encouraged ambulation and sitting in the chair as tolerated Continue with pain control Continue supportive care We met again at the bedside in the afternoon, and she says she continues to feel well and only complains of a little bit of discomfort from the nasogastric tube. Her abdomen is soft, nondistended, not tender. The NG tube did drain about 250 cc over a few hours this afternoon. I reviewed her imaging with her, and I do think there is evidence of some contrast in the colon, which may suggest some resolution of her bowel obstruction. We talked about how she might feel if we remove the nasogastric tube. Although the output remains a bit elevated, other clinical signs are reassuring. She seemed understand this, and I removed the nasogastric tube at the bedside this afternoon in order to see how she feels overnight. Subjective Subjective Interval history since last seen: Patient continues to not feel well, however expresses feeling better after getting some sleep. She denies any nausea or vomiting last night or this morning. (+) BMs yesterday. Exam Const General: cooperative and anxious Orientation: alert and oriented x3 Resp Effort & Inspection: normal respiratory effort, no audible wheezes and no cough GI Inspection: normal to inspection Palpation: soft, no guarding and nontender Percussion: normal to percussion Objective Last Vital Signs Temp 37.1 C 03/19/22 02:03 Pulse 94 H 03/19/22 08:46 Resp 18 03/19/22 02:03 BP 137/78 03/19/22 08:46 Pulse Ox 99 03/19/22 02:03 Laboratory Results - last 24 hr 03/19/22 03/19/22 05:18 05:18 Plt Count 310 Sodium 137 Potassium 3.0 L Chloride 99 Carbon Dioxide 25.3 Anion Gap 12.7 H BUN 21 H Creatinine 0.6 Estimated GFR/1.73 m2 >= 60.00 Glucose 115 H Calcium 9.0 Magnesium 1.9
[2022-03-19] MEDS: POTASSIUM CHLORIDE 20 MEQ/100 ML BAG 50 MEQ IVPB ×2 (10:41→12:32)
--- NOTE | 2022-03-19 13:15 | RT.EKG_ITS ---
APPROVED REPORT Exam: Resting ECG Reason for Exam: prolonged qt Patient Location: I HR:80 bpm ECG Measurements Heart Rate 80 AXIS MO 164 P 31 QRSd 127 QRS -23 QT 412 T -34 QTc 476 Conclusion Sinus rhythm...normal P axis, V-rate 50- 99 Poor R wave progression, possible old anterior infarct Nondiagnostic ST-T abnormalities, minor
[2022-03-19] MEDS: Enoxaparin 40 MG/0.4 ML SYR SC (20:29)
[2022-03-20] VITALS (13 sets, daily range): BP systolic 124–152; BP diastolic 55–87; PULSE 65–94; RESP 16–18; TEMP 36.5–37.5; O2SAT 92–100
[2022-03-20] MEDS: Metoprolol 5 MG/5 ML VIAL IVP ×4 (01:35→19:50)
[2022-03-20] MEDS: Normal Saline Flush 10 ML SYR IVP ×4 (01:36→21:12)
[2022-03-20] MEDS: Lactated Ringers 1,000 ML 125 ML IV ×3 (06:20→22:47)
--- NOTE | 2022-03-20 09:22 | PDOC.CMPRO ---
- If Service Date Differs Date of service: 03/20/22 Time of Service: 09:22 Care Management Progress Note S/O:Ashlyn was ambulating independently in the [place] when CM talked with her. She stated that she is still not feeling well and has not been allowed to eat or drink yet. Her NG tube was removed yesterday but she remains NPO. Wedallyson has not passed any flatus nor has she had a BM yet. CM continues to follow. A: Ashlyn was admitted on 03/16/22 with a SBO P:Ashlyn will likely be discharged home with no new services. She will follow up with her community providers and plan of care as prescribed and transport with family. CM will continue to support Ashlyn and assess for discharge needs.
--- NOTE | 2022-03-20 09:23 | W.PM.PROGNOT ---
Date of Service Date of service: 03/20/22 Time of Service: 07:00 Assessment and Plan Assessment and plan (1) Small bowel obstruction: Status: Acute Assessment and plan: Patient appears to be much more comfortable today. NG tube was removed yesterday. Patient denies having any nausea or vomiting. She is aware that if her nausea and/or vomiting returns that the NG tube may need to be replaced. Patient denies having passed any flatus or bowel movements. Patient wanted to discuss the use of Reglan, however this provider has concerns that this may cause some abdominal discomfort and cramping. We will discuss Dr Choe. Encouraged ambulation and sitting in the chair as tolerated Continue with pain control Continue supportive care Addendum by Baljeet Choe: She felt better after removal of the nasogastric tube last night, and had a general improvement of her symptoms through the evening time. She was able to sleep through the night. This morning, and into the afternoon, she is felt about the same as yesterday. She does not have any appetite yet. She denies any bowel movement or flatus. She also denies nausea. Her abdomen soft, mildly distended, and not tender. I think the distention is improved compared to yesterday. She has rare bowel sounds, but they are low pitched and generally normal. I do not think she is ready to have her diet advanced yet. We did discuss the role of motility agents like Reglan and erythromycin. I would prefer to wait till her appetite resumes before trying any kind of stimulant to the GI tract. We will check electrolytes and a CBC tomorrow. Subjective Subjective Interval history since last seen: Arrived with the patient sitting comfortably in a chair, smiling and visiting her daughter. Patient states she is feeling better today, however continues to have a bloated sensation. She denies any nausea or vomiting. She denies any flatus or bowel movements. Patient reports that her discomfort is mostly from the feeling of distention/bloating which she states does not require any use of medications. she denies any fevers, chills Exam Const General: cooperative, healthy appearing and comfortable Orientation: alert and oriented x3 Resp Effort & Inspection: normal respiratory effort, no audible wheezes and no cough GI Inspection: normal to inspection Palpation: soft, no guarding and nontender Auscultation: hypoactive bowel sounds Objective Last Vital Signs Temp 36.9 C 03/20/22 07:35 Pulse 77 03/20/22 07:35 Resp 18 03/20/22 07:35 BP 125/55 L 03/20/22 07:35 Pulse Ox 99 03/20/22 07:35
[2022-03-20] MEDS: Enoxaparin 40 MG/0.4 ML SYR SC (19:50)
[2022-03-20] MEDS: Ketorolac 15 MG/ML VIAL IVP (21:06)
[2022-03-20] MEDS: Ondansetron 4 MG/2 ML VIAL IVP (21:07)
[2022-03-21] VITALS (22 sets, daily range): BP systolic 131–150; BP diastolic 64–95; PULSE 59–93; RESP 13–19; TEMP 36.5–37.2; O2SAT 95–98; BMI 27.3
[2022-03-21] MEDS: Normal Saline Flush 10 ML SYR IVP ×6 (02:44→21:14)
[2022-03-21] MEDS: Metoprolol 5 MG/5 ML VIAL IVP ×3 (02:44→19:57)
[2022-03-21] MEDS: Ondansetron 4 MG/2 ML VIAL IVP (02:47)
[2022-03-21] MEDS: Lactated Ringers 1,000 ML 125 ML IV ×3 (06:07→21:10)
[2022-03-21] MEDS: Ketorolac 15 MG/ML VIAL IVP ×2 (06:07→21:15)
[2022-03-21 06:55] LABS: MCH 31.7 pg (27.0-33.0); MCHC 33.3 % (32.0-36.0); MCV 95 fL (80-95); MPV 9.7 fL (8.0-11.0); Platelet Count 259 10^3/uL (130-400); RDW 11.7 % (11.7-14.6); RDW-SD 41.1 fL; WBC 10.02 10^3/uL (4.4-10.8)
--- NOTE | 2022-03-21 07:16 | ANES.PREOP_ITS ---
General Info Date of Service Date Performed: 03/21/22 Height: 5 ft 7 in Weight: 79.37 kg Body Mass Index (BMI): 27.3 Surgical Procedure: Operation Date: 03/21/22 08:40 Proposed Procedure Side Surgeon p Exploratory Laparoscopy Baljeet Choe MD Meds Allergies and Home Medications Allergies Allergy/AdvReac Type Severity Reaction Status Date / Time No Known Allergies Allergy Verified 03/16/22 16:32 Home Medication Medication Instructions Recorded ibuprofen 600 mg tablet 600 mg PO QID PRN PAIN/SWELLING 02/08/15 #30 tabs ergocalciferol (vitamin D2) 50 mcg 2,000 unit PO DAILY 03/05/15 (2,000 unit) tablet sennosides 8.6 mg-docusate sodium 1 - 2 tab-cap PO HS PRN 03/05/15 50 mg tablet (Senokot-S) aspirin 81 mg tablet,delayed 81 mg PO DAILY #90 tab-caps 11/30/17 release (Aspir-) metoprolol succinate 50 mg 50 - 100 mg PO DAILY #135 tabs 12/30/21 tablet,extended release 24 hr conj estrogen-medroxyprogesterone 1 tab PO DAILY #90 tab-caps 01/13/22 0.625 mg-2.5 mg tablet (Prempro) dextroamphetamine-amphetamine 20 20 mg PO DAILY #28 tabs 02/11/22 mg tablet (Adderall) Current Visit Medications: Current Medications Generic Name Dose Route Start Last Admin Trade Name Freq PRN Reason Stop Dose Admin Benzocaine/Menthol 1 each 03/18/22 09:52 03/19/22 09:19 Benzocaine/Menthol Log 18/Box SUC 1 cap Q1H PRN PRN Administration Diatrizoate Meglum/Diatrizoate Sod 120 ml 03/18/22 08:00 Gastrografin 120 Ml Btl PO DIRECTED MACIEL Enoxaparin Sodium 40 mg 03/16/22 20:00 03/20/22 19:50 Enoxaparin 40 Mg/0.4 Ml Syr SC 40 mg Q24H MACIEL Administration Sodium Chloride 500 mls @ 0 mls/hr 03/16/22 19:36 Saline 500ml Bag IV PRN PRN As Directed Ringer's Solution 1,000 mls @ 125 mls/hr 03/16/22 19:45 03/21/22 06:07 IV 125 mls/hr INFUSION MACIEL Administration Acetaminophen 1,000 mg in 100 mls @ 400 mls/hr 03/16/22 19:36 03/18/22 09:04 Ofirmev IVPB Infused Q8H PRN PRN Infusion IV Miscellaneous Supplies 1 each 03/16/22 19:45 Iv Access IV DIRECTED MACIEL Ketorolac Tromethamine 15 mg 03/18/22 20:26 03/21/22 06:07 Ketorolac 15 Mg/Ml Vial IVP 03/23/22 20:25 15 mg Q6H PRN PRN Administration Lidocaine HCl 0 ml 03/17/22 11:00 03/17/22 11:23 Lidocaine 2% Jelly 5 Ml Tube TP 1 applic DIRECTED MACIEL Administration Lorazepam 1 mg 03/19/22 13:58 Lorazepam 20 Mg/10 Ml Vial IVP Q3H PRN PRN Metoprolol Tartrate 5 mg 03/17/22 02:00 03/21/22 02:44 Metoprolol 5 Mg/5 Ml Vial IVP 5 mg Q6H MACIEL Administration Morphine Sulfate 2 mg 03/16/22 19:36 03/17/22 06:58 Morphine 2 Mg/Ml Syr IVP 2 mg Q1H PRN PRN Administration Ondansetron HCl 4 mg 03/16/22 19:36 03/21/22 02:47 Ondansetron 4 Mg/2 Ml Vial IVP 4 mg Q4H PRN PRN Administration Sodium Chloride 0 ml 03/16/22 19:36 03/21/22 02:44 Normal Saline Flush 10 Ml Syr IVP 10 ml PRN PRN Administration PFSH Active Problems Active Problems: Problem Status Onset Code Small bowel obstruction K56.609 Breast cancer screening Z12.39 Well woman exam with routine gynecological exam Z01.419 Overweight E66.3 PSVT (paroxysmal supraventricular tachycardia) I47.1 Atrial fibrillation with rapid ventricular response I48.91 Hypokalemia E87.6 History of snoring Z87.898 Well adult exam Z00.00 Surgical History Surgical History section Diagnostic Laproscopy [facility]; [employer] Spinal Fusion 08/26; [facility]; C3-6 Tobacco Smoking/Tobacco Use Status: Never Passive smoking exposure: Yes Second hand exposure: Yes Alcohol Alcohol Intake: current Alcohol intake frequency: a few times a month Alcohol type: wine Substance Use Substance use: Never Substance use type: does not use Vital Signs and Lab Results Vital Signs Most Recent Vital Signs in EMR: Most Recent Vital Signs Temp Pulse Resp BP Pulse Ox 36.5 C 59 L 18 147/83 H 95 03/21/22 02:43 03/21/22 03:40 03/21/22 02:43 03/21/22 02:44 03/21/22 02:43 Lab Results Result Diagrams: 03/21/22 06:42 03/21/22 06:42 Blood Type / Crossmatch: 2 Patient ABO/Rh O Positive 03/21/22 Antibody Screen NEGATIVE 03/21/22 Complete Blood Count: White Blood Count 10.02 10^3/uL (4.4-10.8) 03/21/22 06:42 Red Blood Count 4.10 10^6/uL (3.93-5.22) 03/21/22 06:42 Hemoglobin 13.0 g/dL (11.2-15.7) 03/21/22 06:42 Hematocrit 39.0 % (36.0-46.0) 03/21/22 06:42 Platelet Count 259 10^3/uL (130-400) 03/21/22 06:42 Complete Metabolic Panel: Sodium Level 139 mmol/L (136-145) 03/21/22 06:42 Potassium Level 3.1 mmol/L (3.5-5.1) L 03/21/22 06:42 Chloride Level 100 mmol/L (98-107) 03/21/22 06:42 Carbon Dioxide Level 25.8 mmol/L (21.0-32.0) 03/21/22 06:42 Blood Urea Nitrogen 20 mg/dL (7-18) H 03/21/22 06:42 Creatinine 0.6 mg/dL (0.55-1.02) 03/21/22 06:42 Estimated GFR/1.73 m2 >= 60.00 (mL/min/1.73m2) 03/21/22 06:42 Magnesium Level 1.9 mg/dL (1.8-2.4) 03/19/22 05:18 Calcium Level 8.8 mg/dL (8.5-10.1) 03/21/22 06:42 Albumin 4.3 g/dL (3.4-5.0) 03/16/22 17:20 Glucose Level 99 mg/dL (74-106) 03/21/22 06:42 Liver Function Panel: Alanine Aminotransferase (ALT/SGPT) 27 U/L (14-59) 03/16/22 17: 20 Aspartate Amino Transf (AST/SGOT) 13 U/L (15-37) L 03/16/22 17: 20 Coagulation Panel: No Data to Display Cardiac Panel: No Data to Display Arterial Blood Gas: No Data to Display Venous Blood Gas: No Data to Display Pancreas Panel: Lipase 52 U/L (73-393) 03/16/22 17:20 Thyroid Panel: No Data to Display Infectious Disease: Coronavirus (COVID-19)(PCR) Negative (Negative) 03/16/22 18:00 Coronavirus 2019 Source Nasal/Nares 03/16/22 18:00 Blood Cultures: No Data to Display Toxicology Panel: No Data to Display Imaging and Studies Imaging and Studies Study information below may be from another EMR and interpreted by another juan alberto ding. Please see original notes in EMR for more complete details. EKG Summary: 04/04: sinus rhythm. Echocardiogram Summary: 2017: LVEF 65%. mild MR, myxomatous leaflets. Anesthesia Assessment and Plan Anesthesia History Personal History: No History of Anesthesia Complications Family History: No Family History of Anesthesia Complications Exercise Tolerance Exercise Tolerance: Metabolic Equivalents>4 Cardiac & Pulmonary Exam Cardiac Exam: Normal S1/S2 Heart Sounds Pulmonary Exam: Clear Bilateral Breath Sounds Implantable Cardiac Device Does patient have a Pacemaker or an ICD?: No Airway Exam Known Difficult Airway: No Mallampati Class: 2 Mouth Opening: Normal (> 3cm) Thyromental Distance: Greater than 3 cm Neck Range of Motion: Full ROM Neck Circumference: Normal Teeth Condition: Normal Dentition ASA Classification ASA Score: ASA 2 Emergency Case?: Yes NPO Status NPO Status: Full Stomach Anesthesia Plan Resuscitation Status: Full Code Anesthesia Technique: General Anesthesia Airway Planned: Endotracheal Tube (RSI) Monitors Used: Standard Monitors Preoperative Comments:: 61 yo female for laparoscopic exploration for SBO. Currently inpt getting metoprolol, ketorolac, enoxaparin, Sig PMHx: afib/PSVT, breast CA, C spine fusion c3-c6 feels very full. states that if she burps she vomits. discussed risks, benefits of NGT pre induction and will likely place.
[2022-03-21 07:18] LABS: Anion Gap 13.2 mmol/L (3-11); BUN 20 mg/dL (7-18); CO2 25.8 mmol/L (21.0-32.0); CREATININE 0.6 mg/dL (0.55-1.02); Calcium 8.8 mg/dL (8.5-10.1); Chloride 100 mmol/L (98-107); Glucose 99 mg/dL (74-106); Potassium 3.1 mmol/L (3.5-5.1); Sodium 139 mmol/L (136-145)
[2022-03-21] MEDS: MORPHine 2 MG/ML SYR IVP (08:30)
[2022-03-21] MEDS: Lactated Ringers 1,000 ML 30 ML IV (09:30)
--- NOTE | 2022-03-21 11:03 | CMPROGNOTE_ITS ---
- If Service Date Differs Date of service: 03/21/22 Time of Service: 11:03 Care Management Progress Note S/O:Ashlyn was taken to the OR this morning when her symptoms worsened. She underwent a small bowel resection and lysis of adhesions. The surgeon found that she had adhesions and that a loop of her small bowel had herniated into it. CM met with Ashlyn post-op and she stated that she was feeling much better and was smiling. She shared that Dr. Choe informed her that it is a good thing she u nderwent surgery as this problem would never have resolved on its own. Ashlyn verbalized that she hoped to be able to go home in a few days. A: Ashlyn was admitted on 03/16/22 with a SBO P:Ashlyn will likely be discharged home with no new services. She will follow up with her community providers and plan of care as prescribed and transport with family. CM will continue to support Ashlyn and assess for discharge needs.
--- NOTE | 2022-03-21 11:59 | ROE_ITS ---
Operative Note Operative Note DATE OF PROCEDURE: 03/21/22 PRE-OP DIAGNOSIS: small bowel obstruction POST-OP DIAGNOSIS: same stricture of small intesting PROCEDURE: laparoscopic adhesiolysis, enterectomy with primary anastomosis SURGEON: Baljeet Choe ASSISTING SURGEON: Abigail Fulton ANESTHESIA TYPE: General LMA/ETT Refer to Anesthesia Record ESTIMATED BLOOD LOSS: 50 PATHOLOGY: none sent Indications: Ashlyn Matos is a 61-year-old woman who present with a chief complaint of right upper quadrant pain, loss of appetite, and some nausea. She underwent a CAT scan of the abdomen and pelvis that was consistent with acute small bowel obstruction. We attempted a trial of nonoperative management using nasogastric tube decompression, and although she had some improvement of her symptoms, and some evidence of contrast passing into her colon, by the morning of March 21, she had increasing nausea and pain once again. Therefore, we discussed the risks and benefits of exploratory laparoscopy, and she provided informed consent. Procedure Description: After the routine induction of general anesthesia, and insertion of a Hanson urinary catheter using aseptic technique, I prepped and draped the anterior abdominal wall. I began with a supraumbilical incision and dissected down to the fascia using combination of blunt and sharp dissection. I grasped the fascia with Tracie clamps and elevated into the operative field. I incised the fascia sharply and entered the peritoneal cavity under direct vision. Next, I secured a 12 mm Nieto operating port in the umbilical position. I then insufflated the peritoneal cavity. Next I passed a 5 mm 30 degree scope into the peritoneum. I inspected the immediate bowel and found no evidence of any traumatic injury upon entry. I began by exploring the right upper quadrant as this was a chief location of her symptoms, and the CAT scan suggested that this may be the point of transition. It was immediately evident that there were some adhesions from the anterior capsule of the liver up to the anterior abdominal wall. This created a ring defect through which there was a loop of small bowel herniation. Using the LigaSure device, I divided some of these adhesions and the bowel was able to pop free. There was a tight band of ischemic stricturing from having been stuck in that internal hernia. Although there was some ev idence of resolution of the transition point, and perhaps passage of succus across the strictured area, the nature of it did raise the concern of this being a chronic point of obstruction. Therefore, in order to minimize any postoperative symptoms and chances of recurrence of obstruction pathophysiology, I elected to perform a short segment small bowel resection with primary anastomosis. I did this by first passing 1/4 inch Brenham drain through a small mesenteric defect at the stricture site. This was secured in place with a locking laparoscopic forcep. Next, I divided the previously mentioned adhesions from the liver capsule to the anterior abdominal wall to help clear this area. Is also worth mentioning that the small intestine seemed quite mobile away from the site, and it was clear that that band and hernia defect were the primary source of obstruction. Next, I removed the Nieto port site and extended this incision cephalad. Then, using the laparoscopic grasper, I passed the Jessica drain towards the midline incision and brought it out directly. Once the small intestine was delivered up through the incision, I protected the wound with surgical towels. I divided the small intestine proximal and distal to the stricture site with sequential fires of the ERASTO stapler. The mesentery was divided with the LigaSure. Next, I removed the corners of the a variant and a fair limbs of the divided small intestine. Using a 60 mm ERASTO stapler, I created a [id number] antiperistaltic enteroenterostomy. I did this along the antimesenteric border of the small intestine. It was under no tension and appeared well perfused. I remove the stapler and closed the common enterotomy with 3-0 Vicryl stitches and 2-0 interrupted Lemberted sutures. I irrigated the anastomosis and passed off the contaminated instruments. Next, I delivered the small intestine back into the peritoneal cavity. I generously irrigated the wound. I closed the fascia with a running PDS suture. I irrigated the skin and subcutaneous layers, and then obliterated the space defect with interrupted Vicryl stitches. Finally, I approximated the skin with a running 4-0 subcuticular stitch. I closed the additional 5 mm port site with another 4 oh stitch. Bandages were applied, and the patient was awakened anesthesia brought to the PACU for ongoing recovery.
--- NOTE | 2022-03-21 13:01 | W.ANESPOSTOP ---
Postoperative Evaluation Date, Time and Location Date Performed: 03/21/22 Time Performed: 12:28 Patient Location: PACU Vital Signs Most Recent Imported Vital Signs: Most Recent Vital Signs Temp Pulse Resp BP Pulse Ox 36.7 C 65 16 132/69 98 03/21/22 12:15 03/21/22 12:15 03/21/22 12:15 03/21/22 12:15 03/21/22 12:15 Pain Score Most Recent Pain Score: Most Recent Pain Score Pain Level [Bilateral Upper 0 03/17/22 01:00 Abdomen] Pain Level 1 03/21/22 12:15 Assessment Mental Status: Awake (Alert & Oriented to Patient Baseline) Airway and Respiratory Function: Patent airway with normal (patient baseline) respiratory exam Cardiovascular Function: Hemodynamically Stable Hydration Status: Adequately Hydrated Nausea & Vomiting: No Nausea or Vomiting Pain: Pain is tolerable per patient Peripheral Nerve Block: Patient did not receive a nerve block
--- NOTE | 2022-03-21 13:36 | NUR.NOTE ---
Patient was taken into OR this morning at 08:30 before assessment could be completed, so full nursing assessment performed when patient returned from PACU.
--- NOTE | 2022-03-21 14:01 | PHA.REVIEW ---
Pharmacy Admission Review - Admission Clinical Review (Last Reviewed 03/16/22 @ 17:15 by Abhishek Elise MD) Small bowel obstruction (Acute) No Known Allergies Allergy (Verified 03/16/22 16:32) Resuscitation Status Full Code Height 5 ft 7 in Weight 79.37 kg - Renal Dosing Renal Dosing: BUN 20 mg/dL (7-18) H 03/21/22 06:42 Creatinine 0.6 mg/dL (0.55-1.02) 03/21/22 06:42 Medications needing adjustments: Reviewed (Crcl ~73.6 mL/min current meds okay) - Anticoagulation Anticoagulation: Hgb 13.0 g/dL (11.2-15.7) 03/21/22 06:42 Hct 39.0 % (36.0-46.0) 03/21/22 06:42 Plt Count 259 10^3/uL (130-400) 03/21/22 06:42 Creatinine 0.6 mg/dL (0.55-1.02) 03/21/22 06:42 DVT Prophylaxis: Reviewed Medications: Enoxaparin Therapeutic Anticoagulation: N/A - Opiate Usage Evaluate Pain Scale/Pains Meds: Reviewed Scheduled Bowel Reg ordered if on Opiates?: No (pt has SBO/provider aware) - Relevant Labs Sodium 139 mmol/L (136-145) 03/21/22 06:42 Potassium 3.1 mmol/L (3.5-5.1) L 03/21/22 06:42 Chloride 100 mmol/L (98-107) 03/21/22 06:42 Magnesium 1.9 mg/dL (1.8-2.4) 03/19/22 05:18 Electrolytes, C-Reactive P, ESR: Intervened (will mention to provider) - DM Control DM Control: Glucose 99 mg/dL (74-106) 03/21/22 06:42 Insulin Dosing: N/A - Heart Failure/GA EF%, CARROL's, B-Blockers, Diuretics: N/A - BP Control BP Control: Blood Pressure 134/79 Blood Pressure 138/79 Blood Pressure 141/78 Blood Pressure 132/69 Blood Pressure 143/70 Blood Pressure 139/68 Blood Pressure 134/64 Blood Pressure 133/74 Blood Pressure 139/75 Blood Pressure 147/83 Blood Pressure 147/83 If elevated: Reviewed (BP has been up and down some since admission.) - Qtc Review If Elevated: Reviewed (QTc 467 on 03/19/22) - IV to PO Switch IV Medications: Reviewed (pt still NPO) - Home Meds Home Med List reviewed: Reviewed (none of the pt's home medications are currently ordered) - Current meds Current Medication Order Review: Reviewed (Pharmacy discontinued DI meds that had already been given and duplicate med orders.) - Comments Comments/Follow Ups: Watch BP, K+, labs and for med changes (IV to PO and home medications once Pt. is no longer NPO).
--- NOTE | 2022-03-21 16:10 | W.PM.PROGNOT ---
Date of Service Date of service: 03/21/22 Time of Service: 16:10 Assessment and Plan Assessment and plan (1) Small bowel obstruction: Status: Acute Assessment and plan: Ashlyn os POD #0 for exploratory laparoscopy with lysis of adhesions and removal of a small part of the small intestine. I discussed findings in the OR. Plan: remove santana remove NG tube May have ice chips, hard candy and chewing gum Ambulate at least TID (2) Atrial fibrillation with rapid ventricular response: Assessment and plan: Continue with lopressor Subjective Subjective Interval history since last seen: Ashlyn is doing well. The NG tube is bothering her. She would like to have it removed. She is aware it may need to go back in. Exam Resp Effort & Inspection: normal respiratory effort GI Inspection: incision (dressing is intact) Objective Last Vital Signs Temp 98.6 F 03/21/22 14:00 Pulse 71 03/21/22 14:43 Resp 18 03/21/22 14:00 BP 133/75 03/21/22 14:00 Pulse Ox 96 03/21/22 14:00 Laboratory Results - last 24 hr 03/21/22 03/21/22 03/21/22 06:42 06:42 08:32 WBC 10.02 RBC 4.10 Hgb 13.0 Hct 39.0 MCV 95 MCH 31.7 MCHC 33.3 RDW 11.7 Plt Count 259 MPV 9.7 Sodium 139 Potassium 3.1 L Chloride 100 Carbon Dioxide 25.8 Anion Gap 13.2 H BUN 20 H Creatinine 0.6 Estimated GFR/1.73 m2 >= 60.00 Glucose 99 Calcium 8.8 Patient ABO/Rh O Positive Antibody Screen NEGATIVE
[2022-03-21] MEDS: POTASSIUM CHLORIDE 20 MEQ/100 ML BAG 50 MEQ IVPB ×2 (16:33→18:46)
[2022-03-21] MEDS: Metoclopramide 10 MG/2 ML VIAL IVP (17:36)
[2022-03-21] MEDS: Enoxaparin 40 MG/0.4 ML SYR SC (20:03)
[2022-03-22] VITALS (8 sets, daily range): BP systolic 133–164; BP diastolic 72–80; PULSE 71–151; RESP 16–19; TEMP 36.8–37.2; O2SAT 95–96
[2022-03-22] MEDS: Normal Saline Flush 10 ML SYR IVP ×3 (00:19→19:51)
[2022-03-22] MEDS: Metoclopramide 10 MG/2 ML VIAL IVP ×4 (00:19→17:38)
[2022-03-22] MEDS: Metoprolol 5 MG/5 ML VIAL IVP ×2 (02:11→07:57)
[2022-03-22] MEDS: Lactated Ringers 1,000 ML 125 ML IV (04:44)
[2022-03-22 07:00] LABS: Abs Immature Grans 0.18 10^3/uL (0.0-0.06); Absolute Basophil Count 0.04 10^3/uL (0.0-0.2); Absolute Eosinophil Count 0.04 10^3/uL (0.0-0.7); Absolute Lymphocyte Count 1.56 10^3/uL (1.2-3.4); Absolute Monocyte Count 1.03 10^3/uL (0.1-0.8); Absolute Neutrophil Count 7.64 10^3/uL (1.2-6.7); Basophils % 0.4; Eosinophils % 0.4; HCT 36.8 % (36.0-46.0); HGB 12.4 g/dL (11.2-15.7); Immature Grans % 1.7; Lymphocytes % 14.9; MCH 31.7 pg (27.0-33.0); MCHC 33.7 % (32.0-36.0); MCV 94 fL (80-95); MPV 10.4 fL (8.0-11.0); Monocytes % 9.8; Neutrophils % 72.8; Platelet Count 261 10^3/uL (130-400); RBC 3.91 10^6/uL (3.93-5.22); RDW 11.5 % (11.7-14.6); RDW-SD 39.3 fL; WBC 10.49 10^3/uL (4.4-10.8)
[2022-03-22 07:17] LABS: Anion Gap 8.2 mmol/L (3-11); BUN 12 mg/dL (7-18); CO2 24.8 mmol/L (21.0-32.0); CREATININE 0.6 mg/dL (0.55-1.02); Calcium 8.4 mg/dL (8.5-10.1); Chloride 101 mmol/L (98-107); Glucose 108 mg/dL (74-106); Magnesium 1.7 mg/dL (1.8-2.4); Potassium 3.1 mmol/L (3.5-5.1); Sodium 134 mmol/L (136-145)
[2022-03-22] MEDS: Ketorolac 15 MG/ML VIAL IVP ×2 (07:59→19:51)
--- NOTE | 2022-03-22 11:16 | W.PM.PROGNOT ---
Date of Service Date of service: 03/22/22 Time of Service: 11:17 Assessment and Plan Assessment and plan (1) Small bowel obstruction: Status: Acute Assessment and plan: Ashlyn os POD #1 for exploratory laparoscopy with lysis of adhesions and removal of a small part of the small intestine. She has started passing some flatus. She is up and walking. Her pain is well controlled. Plan: Ambulate tid Start clear liquids Reduce IV fluids Start on PO Metoprolol and make IV lopressor prn May shower (2) Atrial fibrillation with rapid ventricular response: Assessment and plan: start po metoprolol Subjective Subjective Interval history since last seen: Ashlyn is POD #1 s/p exploratory laparoscopy for SBO. She is doing well. She passed some flatus. No fevers Feeling well. Pain medications are working well Exam Const General: cooperative, comfortable and no acute distress HENMT Head: normocephalic and atraumatic Resp Effort & Inspection: normal respiratory effort Auscultation: clear to auscultation bilaterally Cardio Rate: regular rate Rhythm: regular rhythm GI Palpation: soft and tender (appropriately tender along her incision) Auscultation: hypoactive bowel sounds Objective Last Vital Signs Temp 98.2 F 03/22/22 07:28 Pulse 99 H 03/22/22 07:57 Resp 16 03/22/22 07:28 BP 147/79 H 03/22/22 07:57 Pulse Ox 96 03/22/22 07:28 Laboratory Results - last 24 hr 03/22/22 03/22/22 06:25 06:25 WBC 10.49 RBC 3.91 L Hgb 12.4 Hct 36.8 MCV 94 MCH 31.7 MCHC 33.7 RDW 11.5 L Plt Count 261 MPV 10.4 Immature Gran % 1.7 Neutrophils % 72.8 Lymphocytes % 14.9 Monocytes % 9.8 Eosinophils % 0.4 Basophils % 0.4 Nucleated RBC % 0.0 Absolute Neutrophils 7.64 H Absolute Lymphocytes 1.56 Absolute Monocytes 1.03 H Absolute Eosinophils 0.04 Absolute Basophils 0.04 Sodium 134 L Potassium 3.1 L Chloride 101 Carbon Dioxide 24.8 Anion Gap 8.2 BUN 12 Creatinine 0.6 Estimated GFR/1.73 m2 >= 60.00 Glucose 108 H Calcium 8.4 L Magnesium 1.7 L
[2022-03-22] MEDS: MAGNESIUM SULFATE 4 GM/100 ML BAG IVPB (11:45)
[2022-03-22] MEDS: POTASSIUM CHLORIDE 20 MEQ/100 ML BAG 50 MEQ IVPB ×2 (11:45→14:08)
[2022-03-22] MEDS: Lactated Ringers 1,000 ML 80 ML IV (11:45)
[2022-03-22] MEDS: ACETAMINOPHEN 1,000 MG/100 ML BTL 400 MG IVPB (15:37)
[2022-03-22] MEDS: Enoxaparin 40 MG/0.4 ML SYR SC (19:54)
[2022-03-23] MEDS: Metoclopramide 10 MG/2 ML VIAL IVP ×3 (00:25→11:31)
[2022-03-23] MEDS: Lactated Ringers 1,000 ML 80 ML IV (00:30)
[2022-03-23 03:29] VITALS: BP 154/80; PULSE 73; RESP 18; TEMP 36.9; O2SAT 96
[2022-03-23 04:39] VITALS: PULSE 66
[2022-03-23 06:48] LABS: HCT 38.1 % (36.0-46.0); HGB 13.4 g/dL (11.2-15.7); MCH 32.7 pg (27.0-33.0); MCHC 35.2 % (32.0-36.0); MCV 93 fL (80-95); MPV 10.2 fL (8.0-11.0); Platelet Count 285 10^3/uL (130-400); RDW 11.8 % (11.7-14.6); RDW-SD 40.5 fL; WBC 11.39 10^3/uL (4.4-10.8)
[2022-03-23 07:24] VITALS: BP 157/84; PULSE 68; RESP 16; TEMP 36.8; O2SAT 96
[2022-03-23 07:36] VITALS: PULSE 67
[2022-03-23] MEDS: Metoprolol CR 50 MG TABCR PO (07:54)
[2022-03-23] MEDS: Normal Saline Flush 10 ML SYR IVP ×2 (11:31→15:06)
--- NOTE | 2022-03-23 11:38 | PGE_ITS ---
Date of Service Date of service: 03/23/22 Time of Service: 11:39 Assessment and Plan Assessment and plan (1) Small bowel obstruction: Status: Acute Assessment and plan: Ashlyn os POD #2 for exploratory laparoscopy with lysis of adhesions and removal of a small part of the small intestine. She has started passing some flatus. She is up and walking. Her pain is well controlled. Plan: Ambulate tid soft diet stop IV fluids Continue on PO Metoprolol Discharge tomorrow (2) Atrial fibrillation with rapid ventricular response: Assessment and plan: start po metoprolol Subjective Subjective Interval history since last seen: Ashlyn is POD #3 s/p exploratory laparoscopy, KIMBERLEY and small bowel resection. She is doing well. She has had BM's x2 today and is passing flatus. She tolerated a soft, low fiber diet this am Exam Const General: cooperative, healthy appearing and comfortable [facility] Head: normocephalic and atraumatic GI Palpation: soft, no hepatosplenomegaly and tender (mild around the midline incision) Auscultation: normal bowel sounds Objective Last Vital Signs Temp 98.2 F 03/23/22 07:24 Pulse 67 03/23/22 07:36 Resp 16 03/23/22 07:24 BP 157/84 H 03/23/22 07:24 Pulse Ox 96 03/23/22 07:24 Laboratory Results - last 24 hr 03/23/22 06:04 WBC 11.39 H RBC 4.10 Hgb 13.4 Hct 38.1 MCV 93 MCH 32.7 MCHC 35.2 RDW 11.8 Plt Count 285 MPV 10.2
[2022-03-23] MEDS: Ketorolac 15 MG/ML VIAL IVP (15:06)
[2022-03-23 15:27] VITALS: BP 159/91; PULSE 72; RESP 18; TEMP 37.4; O2SAT 96
[2022-03-23] MEDS: Enoxaparin 40 MG/0.4 ML SYR SC (20:44)
[2022-03-23] MEDS: Acetaminophen 325 MG TAB 650 MG PO (20:44)
[2022-03-23] MEDS: Melatonin 3 MG TAB 6 MG PO (20:44)
[2022-03-23 23:55] VITALS: BP 147/82; PULSE 82; RESP 20; TEMP 36.6; O2SAT 96
[2022-03-24] MEDS: Acetaminophen 325 MG TAB 650 MG PO (02:01)
--- NOTE | 2022-03-24 07:09 | DSE_ITS ---
Date of service: 03/24/22 Time of Service: 07:09 DS: Diagnosis Discharge Diagnosis (1) Small bowel obstruction: Status: Acute (2) Atrial fibrillation with rapid ventricular response: Discharge Plan Disposition Patient Disposition: HOME Condition: Stable Discharge Details Reason For Visit: SBO Admit Date/Time: 03/16/22 19:36 Admit Provider: Cindy Dover Attending Provider: Cindy Dover Primary Care Provider: Robb Esparza Hospital Course Hospital Course: Ashlyn was admitted 8 days ago with a SBO. After trialing non-surgical treatment without success she was taken to the OR on thursday for exploratory laparotomy, lysis of adhesions and small bowel resection. She is now POD #3 and is doing well. She has been eating a soft diet. She is passing flatus and having Bm's. Pain is well controlled on tylenol and ibuprofen. Incisions are c/d/i. We will discharge her home today Home Meds and New Rx's Prescriptions: Continued sennosides-docusate sodium [Senokot-S] 1 EACH tablet 1 - 2 tab-cap PO HS PRN Label Comments: 01/09/17 not taking JESSICA ergocalciferol (vitamin D2) 2,000 UNIT tablet 2,000 unit PO DAILY aspirin [Aspir-81] 81 MG tablet,delayed release (DR/EC) 81 mg PO DAILY Qty: 90 0RF metoprolol succinate 50 mg tablet extended release 24 hr 50 - 100 mg PO DAILY Qty: 135 3RF Rx Instructions: alternate 50 mg/100 mg qod Prempro 0.625-2.5 mg tablet 1 tab PO DAILY Qty: 90 3RF dextroamphetamine-amphetamine [Adderall] 20 mg tablet 20 mg PO DAILY MDD 1 capsule Qty: 28 0RF ibuprofen 600 MG tablet 600 mg PO QID PRN (Reason: PAIN/SWELLING) Qty: 30 0RF Discharge Instructions Instructions: Low Fiber Diet (DC) Additional Instructions: Activity at Home after surgery: 1. Make sure you walk outside at least 4 times per day 2. You should be able to climb a flight of stairs 3. No driving while in pain or taking pain medications 4. No strenuous activity or heavy lifting ( <10 lb) for 4 weeks (open surgery) Diet, Nutrition, & wound healing: Low fiber 1. Avoid alcohol until after you are recovered from your surgery 2. Make sure to eat plenty of lean protein (meat, fish, eggs, cottage cheese, beans) 3. Drink plenty of liquids to stay hydrated and avoid constipation Pain Medications: 1. Tylenol 650mg every 6 hours as needed and Ibuprofen 600 mg every 6 hours as needed. You may alternate between the 2 medications every 3 hours 2. If a narcotic has been prescribed take as directed only for b reakthrough pain For Constipation: 1. Take Milk of Magnesia or MiraLax as needed for constipation Other: 1. You may shower daily. Do not scrub the incisions 2. Do not soak the incisions for 1 week 3. You may alternate ice and heat as needed for pain and swelling Wound Care: 1. Keep the incisions clean and dry Please call our office if you develop: 1. Fevers >101.5 2. Nausea or Vomiting 3. Worsening pain 4. Redness and thick discharge from the wounds If after hours please call the Hospital at and ask to speak to the on-call surgeon Referrals: Baljeet Choe MD [ [facility] STAFF PHYSICIAN] - 04/02/22 9:30 am Activity:: see above Equipment/Supplies:: No Equipment Needed Diet:: low fiber DS: Summary Time Spent with Patient providing and/or coordinating discharge services: Less than 30 minutes Status at Discharge Functional status at discharge: independent ambulation Overall status at discharge: patient is back to baseline Mental Status: mental status grossly normal Speech and Movement: speech and movement normal Mood: congruent mood Affect: normal affect Exam Const General: comfortable and no acute distress HENMT Head: normocephalic and atraumatic Resp Effort & Inspection: normal respiratory effort Auscultation: clear to auscultation bilaterally Cardio Rate: regular rate Rhythm: regular rhythm GI Inspection: incision (c/d/i) Palpation: soft, no hepatosplenomegaly and tender (mildly tender) Auscultation: normal bowel sounds Psych Mental Status: mental status grossly normal Speech and Movement: speech and movement normal Mood: congruent mood Affect: normal affect DS: Data Vitals/I&O Vitals and I&O: Vital Signs Temperature 97.9 F 03/23/22 23:55 Temperature Source Tympanic 03/23/22 23:55 Pulse 82 03/23/22 23:55 Pulse Rhythm Regular 03/24/22 05:17 Respiratory Rate 20 03/23/22 23:55 Respiratory Effort 03/24/22 05:17 Respiratory Depth Normal 03/24/22 05:17 Respiratory Pattern Normal 03/24/22 05:17 Blood Pressure 147/82 H 03/23/22 23:55 Blood Pressure Position Sitting 03/16/22 16:28 Pulse Oximetry 96 03/23/22 23:55 Oxygen Delivery Method Room Air 03/23/22 23:55 Oxygen Flow Rate 0 03/23/22 23:55 Pain Level 3 03/24/22 02:01 Comment 03/20/22 22:30 Intake & Output 03/23/22 03/23/22 03/24/22 11:59 23:59 11:59 Intake Total 1250 / 2730 1480 / 2730 Output Total 950 / 1400 450 / 1400 Balance 300 / 1330 1030 / 1330 Intake: IV 1000 / 2000 1000 / 2000 Oral 250 / 730 480 / 730 Output: Urine 950 / 1400 450 / 1400 Other: Urine Color Yellow Light Tran Urine Appearance Clear Clear Urine Odor Normal Comment voiding independent Stool Size Large Stool Characteristics Formed Voiding Methods Toilet PFSH All Active Problems Small bowel obstruction (Acute) Overweight (Acute) Hypokalemia (Acute) History of snoring (Acute) Medical History Atrial fibrillation with rapid ventricular response PSVT (paroxysmal supraventricular tachycardia) 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 Daughter No problems noted. Social History Smoking/Tobacco Use Status: Never Second Hand Exposure: Yes Smoking risk assessment performed?: Yes Alcohol Intake: current Alcohol Intake frequency: a few times a month Alcohol type: wine Drug use: Never Substance use type: does not use Caregiver/Support person: No Household members: spouse Housing: house Communication Needs: None Do you need help understanding health information?: Never Pets and animals: No Sexually active: Yes Do you think of yourself as: straight/heterosexual Current gender identity: female What is your relationship status?: How often do you talk on the phone with friends or family?: three or more times per week How often do you get together with friends or relatives?: three or more times per week How often do you attend spiritism or moravian services?: 1-3 times per year Do you belong to any clubs or organized social groups?: yes Panel score (0-1 are the most socially isolated patients): 3 What type of physical activity do you participate in: walking Duration: 15-30 minutes/day Frequency: 3-4 times per week Lucy/Amish: No preference Special lucy needs: No Seatbelt use: always Helmet use: Yes Helmet use: always Drive intox or ride w/intox corrugated fastener driver: No Do you feel safe at home: Yes Do you feel safe in your relationship?: Yes
[2022-03-24] MEDS: Metoprolol CR 50 MG TABCR PO (08:03)
[2022-03-24 08:34] VITALS: BP 146/67; PULSE 71; RESP 22; TEMP 36.8
--- NOTE | 2022-03-24 11:38 | PDOC.CMDIS ---
- If Service Date Differs Date of service: 03/24/22 Time of Service: 11:38 LACE Index Scoring Tool - Questions: Length of Stay (in days): 7 - 13 Acuity (Admit via E.D.?): Yes E.D. Visits: 1 - Answers: Total Score: 9 Risk of Readmission: Low Risk Care Management Discharge Reason for Hospitalization: SBO Discharge Plan: Ashlyn will be discharged home with no new services. She will follow up with her community providers and plan of care as prescribed and transport with her . Patient/Family Education Needs: Review of discharge instructions including medications, activity, diet, limitations, follow up plan and discuss Ask Me Three.
== END 2022-03-24 09:09 | disposition home or self-care (01) | DRG 330 ==
LOC: ER 19:08 → MS 23:30
PROVIDERS: Surgery; Admitting Provider Surgery; Emergency Provider Emergency Medicine; PCP Family Medicine; Visit Provider Surgery
PROC: 0DB84ZZ Excision of Small Intestine, Percutaneous Endoscopic Approach (ICD-10-PCS; CPT 49320; principal; 2022-03-21 08:30)
DX: K56.50 Intestinal adhesions [bands], unspecified as to partial versus complete obstruction (principal); I47.1 Supraventricular tachycardia; I48.91 Unspecified atrial fibrillation; E87.6 Hypokalemia; E66.3 Overweight; Z68.27 Body mass index [BMI] 27.0-27.9, adult; Z79.899 Other long term (current) drug therapy; Z79.82 Long term (current) use of aspirin
CPT/HCPCS: 44202; 44180; 36415; 80048; 80053; 83690; 85027; 86850; 86900; 86901; 87635; 96361; 96374; 96375; 99285; J1650; 74018; 74019; 81003; 83735; 85025; 85049; J0131; J0690; J1100; J1885; J2060; J2250; J2270; J2405; J2704; J2765; J3475; J3480; J3490

== ENCOUNTER 2022-04-03 11:28 | Outpatient (REF) | payer OTHER, SELFPAY | END 2022-04-03 11:29 | disposition home or self-care (01) | LOC: LBN 11:28 | PROVIDERS: PCP Family Medicine; Visit Provider Surgery | DX: T81.49XA Infection following a procedure, other surgical site, initial encounter (principal) | CPT/HCPCS: 87077; 87070; 87186; 87205 ==

== ENCOUNTER → 2022-07-11 00:29 | Outpatient (CLI) | payer OTHER, SELFPAY ==
--- NOTE | 2022-07-11 08:45 | DI.MAMMO_ITS ---
Exam(s) MAMMO SCREENING EXAM: MAMMO SCREENING CLINICAL HISTORY: screening,Z12.39 TECHNIQUE: Bilateral full field digital CC and MLO mammographic images were obtained with 3D tomosyn thesis and utilizing computer aided detection (CAD). COMPARISON: Available for comparison. FINDINGS: Masses/Architectural Distortion: There is a stable well-circumscribed nodule in the medial right [address] st on the CC view. No suspicious masses or areas of architectural distortion are present. Microcalcifications: No suspicious pleomorphic-type are seen. Skin Thickening/Nipple Retraction: None. IMPRESSION: 1. No significant interval change with no specific features of malignancy noted. 2. Unless there is more urgent need, screening mammography is recommended, as per [place] [employer] guidelines. 3. Findings were discussed with the patient on the date of the examination. BI-RADS Category 2 - Benign Findings Breast Density - Category C - Heterogeneously dense Breast density category C or D implies that the patient has dense breast tissue. Dense breast tissue is very common and is not abnormal but dense breast tissue can make it harder to find cancer on a ma mmogram. Also, dense breast tissue may increase their breast cancer risk. This information about the result of the mammogram report was provided to the patient to raise their awareness. Use this report when you speak with the patient about their risks for breast cancer, which includes their family hist ory. At that time, you may recommend for more screening tests (Ultrasound or MRI) as they might be us eful based on their risk. A negative radiographic report should not delay biopsy if a dominant or clinically suspicious mass is present. Up to ten percent of cancers are not identified on mammography. A negative report may reinforce clinical impression. Adenosis and dense breasts may obscure an underlying neoplasm. False positive reports average 6 to 10%. Patient will receive a letter notifying them of these results.
== END ==
PROVIDERS: PCP Family Medicine; Visit Provider Family Medicine
DX: Z12.31 Encounter for screening mammogram for malignant neoplasm of breast (principal); R92.8 Other abnormal and inconclusive findings on diagnostic imaging of breast
CPT/HCPCS: 77063; 77067

== ENCOUNTER 2022-09-29 09:51 | Outpatient (CLI) | payer OTHER, SELFPAY ==
[2022-09-30 19:23] LABS: Baker's Yeast, IgE <0.35 kU/L; Banana, IgE <0.35 kU/L; Barley, IgE <0.35 kU/L; Beef IgE <0.35 kU/L; Black/White Pepper IgE <0.35 kU/L; Broccoli IgE <0.35 kU/L; Cacao/Cocoa, IgE <0.35 kU/L; Cinnamon, IgE <0.35 kU/L; Corn-Food IgE <0.35 kU/L; Milk, IgE <0.35 kU/L; Onion, IgE <0.35 kU/L; Soybean IgE <0.35 kU/L; Strawberry, IgE <0.35 kU/L
[2022-09-30 19:38] LABS: Egg Whole IgE <0.10 kU/L; White Potato, IgE <0.35 kU/L
== END 2022-09-29 09:52 | disposition home or self-care (01) ==
LOC: LBO 09:51
PROVIDERS: PCP Family Medicine; Visit Provider Otolaryngology Otolaryngology/Facial Plastic Surgery
DX: R21 Rash and other nonspecific skin eruption (principal); Z01.82 Encounter for allergy testing
CPT/HCPCS: 36415; 86003

== ENCOUNTER 2022-11-04 02:01 | Outpatient (CLI) | payer OTHER, SELFPAY ==
[2022-11-04 13:57] LABS: Abs Immature Grans 0.07 10^3/uL (0.0-0.06); Absolute Basophil Count 0.04 10^3/uL (0.0-0.2); Absolute Eosinophil Count 0.24 10^3/uL (0.0-0.7); Absolute Lymphocyte Count 2.31 10^3/uL (1.2-3.4); Absolute Neutrophil Count 5.07 10^3/uL (1.2-6.7); Basophils % 0.5; Eosinophils % 2.8; HGB 14.4 g/dL (11.2-15.7); Immature Grans % 0.8; Lymphocytes % 26.8; MCH 32.3 pg (27.0-33.0); MCHC 33.5 % (32.0-36.0); MCV 96 fL (80-95); MPV 10.3 fL (8.0-11.0); Monocytes % 10.4; Neutrophils % 58.7; Platelet Count 274 10^3/uL (130-400); RBC 4.46 10^6/uL (3.93-5.22); RDW 11.8 % (11.7-14.6); RDW-SD 42.1 fL; WBC 8.63 10^3/uL (4.4-10.8)
[2022-11-04 15:23] LABS: ALT 18 U/L (14-59); AST 16 U/L (15-37); Albumin 4.2 g/dL (3.4-5.0); Alkaline Phosphatase 58 U/L (46-116); BUN 14 mg/dL (7-18); Bilirubin, Total 0.8 mg/dL (0.2-1.0); CREATININE 0.7 mg/dL (0.55-1.02); Calcium 9.9 mg/dL (8.5-10.1); Chloride 104 mmol/L (98-107); Estimated GFR 98.95 (mL/min/1.73m2); Glucose 89 mg/dL (74-106); Potassium 3.5 mmol/L (3.5-5.1); Sodium 141 mmol/L (136-145); TSH (W/Ref FT4) 1.07 uIU/mL (0.36-3.74); Total Protein 7.4 g/dL (6.4-8.2)
[2022-11-05 12:35] LABS: ANA Interpretation Negative (Negative)
== END 2022-11-04 02:02 | disposition home or self-care (01) ==
LOC: LBO 02:02
PROVIDERS: PCP Family Medicine; Visit Provider Physician Assistant
DX: R21 Rash and other nonspecific skin eruption (principal); L29.9 Pruritus, unspecified
CPT/HCPCS: 36415; 80053; 84443; 85025; 86003; 86038

== ENCOUNTER → 2023-09-02 10:31 | Outpatient (CLI) | payer OTHER, SELFPAY ==
--- NOTE | 2023-09-02 09:30 | DI.CT_ITS ---
Exam(s) CT ABDOMEN PELVIS W EXAM: CT ABDOMEN PELVIS W CLINICAL HISTORY: R10.2 Pelvic/Perineal pain r/o bowel obstruction. TECHNIQUE: Imaging Protocol: Axial computed tomography images with coronal and sagittal reformatted images were created and reviewed CONTRAST MATERIAL: Intravenous: Omnipaque-350 100cc Oral: None COMPARISON: CT ABD PELVIS WITH CONTRAST from 09/27/2015 FINDINGS: VISUALIZED LUNG BASES: No nodules nor pleural effusions evident. ABDOMEN: There is no ascites. LIVER: Both small benign cysts in the liver are unchanged from 2016. There are no new concerning a P [place] lesions. No dilated intrahepatic ducts. GALLBLADDER/BILIARY: No obvious gallbladder pathology. CBD is not dilated. PANCREAS: No evidence of pancreatic mass nor dilatation of the pancreatic duct. SPLEEN: Spleen is not enlarged. No obvious intrasplenic lesions. Splenic and portal veins are paten t. ADRENALS: There are no significant adrenal masses. KIDNEYS:No cysts evident. No solid renal masses. No calculi nor hydronephrosis.. ABDOMINAL AORTA: Abdominal aorta is not enlarged. LYMPH NODES:There is no retroperitoneal nor paraaortic adenopathy. ABDOMINAL WALL: No evidence of significant anterior abdominal wall nor inguinal hernia. GI: There is a small bowel anastomosis in the upper right pelvis. There is some fecalization of the distal ileum but no true bowel obstruction, free air, nor abscess at this level. There is a moderate amount of fecal material noted throughout the colon. PELVIS: GI: Appendix not seen and may be surgically absent.There are a few uncomplicated appearing diverticul i in the descending left colon. there is an area of thinning of the upper sigmoid noted and there is some mild engorgement of mesenteric vessels just above the fundus of the uterus. No true mesenteric swirl sign evident. LYMPH NODES: There is no intrapelvic nor inguinal adenopathy. REPRODUCTIVE: Uterus unremarkable. No ovarian masses evident. No free fluid in the pelvis. URINARY BLADDER: No calculi nor obvious masses evident OSSEOUS: No fractures and no significant osseous lesions. Intra sacral cysts are again noted in the sacral canal, unchanged. IMPRESSION: 1. Compared to prior study of 2016 there is a right-sided small bowel anastomosis, without obstructio n nor abscess nor free air at this level. 2. The appearance of the sigmoid in the upper left iliac fossa is somewhat narrowed when compared to the prior study and there appears to be mild engorgement of mesenteric vessels in this region (no oscar dence of intraluminal thrombus). There is no obvious mesenteric swirl sign at this level. Would rec ommend repeating this study with abundant oral contrast to determine if this is a consistent finding. 3. There is no ascites and no abnormal mesenteric masses evident. 4. Stable benign-appearing small cysts in the liver, unchanged from 2016. Study reviewed at my PACS with the surgeon RADIATION DOSE DELIVERED: Total DLP DATA REPOSITORY: All CT scans at this facility are submitted to the National Radiology Data Registry (NRDR) Dose Index Registry (DIR) with the [employer] (ACR). RADIATION OPTIMIZATION: All CT scans at this facility use at least one of these dose optimization te chniques: automated exposure control; mA and/or kV adjustment per patient size (includes targeted exa ms where dose is matched to clinical indication); or iterative reconstruction.
[2023-09-02] MEDS: Breeza Beverage 473 ML BTL 946 ML PO (09:53)
[2023-09-02 10:45] LABS: CREATININE 0.8 mg/dL (0.55-1.02); Estimated GFR 83.78 (mL/min/1.73m2)
[2023-09-02] MEDS: Omnipaque 350 MG/ML 500 ML BTL-Imaging package IJ (12:19)
[2023-09-02] MEDS: Normal Saline - Diluent 50 ML VIAL IJ (12:20)
== END ==
PROVIDERS: PCP Family Medicine; Visit Provider Surgery
DX: R10.2 Pelvic and perineal pain (principal); K56.609 Unspecified intestinal obstruction, unspecified as to partial versus complete obstruction; K76.9 Liver disease, unspecified; K63.89 Other specified diseases of intestine
CPT/HCPCS: 74177; 82565

== ENCOUNTER 2023-09-10 13:56 | Outpatient (CLI) | payer OTHER, SELFPAY ==
--- NOTE | 2023-09-10 13:45 | RT.EKG_ITS ---
APPROVED REPORT Exam: Resting ECG Reason for Exam: baseline Patient Location: O HR:73 bpm ECG Measurements Heart Rate 73 AXIS MI 167 P 8 QRSd 117 QRS -21 QT 418 T 1 QTc 461 Conclusion Sinus rhythm...normal P axis, V-rate 50- 99 Nonspecific intraventricular conduction delay...QRSd >115mS, not LBBB/RBBB Inferior infarct, old...Q >35mS, II III aVF I have reviewed and interpreted ECG and agree with software generated interpretation.
== END 2023-09-10 13:57 | disposition home or self-care (01) ==
LOC: DI.CARD 13:56
PROVIDERS: PCP Family Medicine; Visit Provider Internal Medicine Interventional Cardiology
DX: I49.9 Cardiac arrhythmia, unspecified (principal)
CPT/HCPCS: 93010

== ENCOUNTER 2023-09-11 08:06 | Outpatient (RCR) | payer OTHER, SELFPAY ==
--- NOTE | 2023-09-11 08:08 | HOLTER_ITS ---
APPROVED REPORT Exam Type: HOLTER MONITOR APPLICATION Reason for Test: Palpitations Patient Location: O Conclusion 1. The underlying rhythm is sinus 2. Several PAC's with a few runs of nonsustained SVT, longest 13 beats, fastest 187 bpm. 3. Few unifocal PVC's, no VTach.
== END 2023-09-13 23:59 | disposition home or self-care (01) ==
LOC: CARDOPNVT 08:06
PROVIDERS: PCP Family Medicine; Visit Provider Internal Medicine Interventional Cardiology
DX: R00.2 Palpitations (principal); R00.0 Tachycardia, unspecified
CPT/HCPCS: 93225

== ENCOUNTER 2023-09-16 11:45 | Outpatient (RCR) | payer OTHER, SELFPAY | END 2023-10-14 23:59 | disposition home or self-care (01) | LOC: CARDOPNVT 11:45 | PROVIDERS: PCP Family Medicine; Visit Provider Internal Medicine Interventional Cardiology | DX: R00.2 Palpitations (principal); I49.1 Atrial premature depolarization | CPT/HCPCS: 93226 ==

== ENCOUNTER → 2023-09-21 01:02 | Outpatient (CLI) | payer OTHER, SELFPAY ==
--- NOTE | 2023-09-21 07:30 | DI.NM_ITS ---
APPROVED REPORT Exam: Exercise Treadmill Patient Location: Out-Patient Room/Bed: Stress Nurse: Katie Kidd RN Ordering Provider:NATHALIA AYON, Contact Number: BMI: 27.87 Baseline Rhythm: Sinus Rhythm Comment: Sinus Arrhythmia Indications: Abnormal EKG, Family Hx heart disease Medical History Medical History: Abnormal EKG Cardiac Medications: Aspirin, Vit D2, Metoprolol succinate Allergies: NKA Cardiac Risk Factors: Family Hx Previous Cardiac Procedures: None Pretest Chest Pain Characteristics: None Exercise History: Sedentary Physical Disabilities: None Lung Sounds: Clear to auscultation Heart Sounds: Regular Stress Test Details Test: Exercise stress testing was performed using a [place] protocol. Nuclear Acquisition: Rest Tc-99m/Stress Tc-99m 1 day Rest Isotope: Tc-99m Sestamibi. Dose: 10 Date: 09/21/2023 Injection Time: 0930 Stress Isotope: Tc-99m Sestamibi. Dose: 30 Date: 09/21/2023 Injection Time: 1100 HR Resting HR Supine: 69 bpm Max Heart Rate (APMHR): 159.376244 bpm Resting HR Standin bpm Target HR (85% APMHR): 135.452107 bpm Max HR Achieved: 154 bpm % of APMHR: 96.86 Recovery HR: 75 bpm HR response to stress: Normal HR response to stress BP Resting BP Supine: 148/82 mmHg Resting BP Standin/92 mmHg Max BP: 182/68 mmHg Recovery BP: 128/98 mmHg BP response to stress: Normal blood pressure response to stress. ECG Resting ECG: Sinus Rhythm Ectopy: None Stress ECG: Sinus Tachycardia ST Change: Nondiagnostic resting ST abnormalities Arrhythmia: VPC's Recovery ECG: Sinus Rhythm Recovery ST Change: Nondiagnostic resting ST abnormalities Recovery Arrhythmia: APC, VPC Comment: frequent multifocal/couplet PVCs Clinical Reason for Termination: Fatigue Stress Symptoms: Palpitations Exercise duration: 5 min21 sec Highest Stage Reached: Stage 3: 3.4 mph at 14% grade. Exercise capacity: 7.05 METs Angina Score: None Thomas Treadmill Score: 4.4 Rate Pressure Product: 35054 Stress ECG Conclusion 1. 1. Normal clinical and BP responses. 2. 2. Normal HR response. 3. 3.The nuclear findings are reported separately Thomas Treadmill Score is 4.4 which is Moderate risk. Stress Test Summary STAGE Time (mins) Speed (mph) Grade (%) HR BP SpO2 SYMPTOMS METS Supine 69 148/82 Standing 90 144/92 1 3 1.7 10 118 162/82 98 4.5 2 6 2.5 12 152 172/76 7 1 min recovery 132 182/68 3 min recovery 75 142/82 6 min recovery 75 128/98 MPI Conclusion Normal myocardial perfusion,noischemnia or infarct Normal LV function,no wall motion abnormality, EF 62% Radiologist Interpretation Radiologist Interpretation by: Arsh Choe MD Interpretation Date/Time: 09/23/2023 12:46:49
== END ==
PROVIDERS: PCP Family Medicine; Visit Provider Internal Medicine Interventional Cardiology
DX: R94.31 Abnormal electrocardiogram [ECG] [EKG] (principal); Z82.49 Family history of ischemic heart disease and other diseases of the circulatory system
CPT/HCPCS: 78452; 93017

== ENCOUNTER → 2023-10-20 01:31 | Outpatient (CLI) | payer OTHER, SELFPAY ==
--- NOTE | 2023-10-20 12:00 | DI.MAMMO_ITS ---
Exam(s) MAMMO SCREENING EXAM: MAMMO SCREENING CLINICAL HISTORY: screening TECHNIQUE: Mammograms were interpreted according to the usual protocol including computer analysis w [employer] CAD system, tomosynthesis and C-view imaging. COMPARISON: 2013 through 2021 FINDINGS: The breasts are composed of heterogeneously dense fibroglandular densities, Breast Density category C . No suspicious masses or suspicious microcalcifications are seen. Small circumscribed nodule again no julia in the medial right breast. No skin thickening or abnormal axillary lymph nodes are seen. There has been no significant change from prior exams. IMPRESSION: BI-RADS Category 2 - Negative Mammogram with benign findings. Yearly screening mammography is recom mended. Breast Density Category C, heterogeneously Dense. The mammogram demonstrates the patient's breast tissue is dense. Dense breast tissue is very common a nd is not abnormal but dense breast tissue can make it harder to find cancer on a mammogram. Also, de nse breast tissue may increase breast cancer risk. This information about the result of the mammogram report was provided to the patient to raise their awareness. Use this report when you speak with the patient about their risks for breast cancer, which includes their family history. At that time, you may recommend additional screening tests (Ultrasound or MRI) as they might be useful based on their r isk. A negative radiographic report should not delay biopsy if a dominant or clinically suspicious mass is present. Up to ten percent of cancers are not identified on mammography. A negative report may reinforce clinical impression. Adenosis and dense breasts may obscure an underlying neoplasm. False positive reports average 6 to 10%.
== END ==
PROVIDERS: PCP Family Medicine; Visit Provider Obstetrics & Gynecology
DX: Z12.31 Encounter for screening mammogram for malignant neoplasm of breast (principal); R92.333 Mammographic heterogeneous density, bilateral breasts
CPT/HCPCS: 77063; 77067

== ENCOUNTER 2024-02-22 08:49 | Day surgery (SDC) | payer OTHER, SELFPAY ==
--- NOTE | 2024-02-21 12:02 | PDOC.DSDIS_ITS ---
Date of service: 02/22/24 Time of Service: 11:21 Discharge Plan Disposition Patient Disposition: Home Condition: Good Discharge Details Reason For Visit: screening colonoscopy Attending Provider: Baljeet Choe Primary Care Provider: Robb Esparza Home Meds and New Rx's Prescriptions: Continued triamcinolone acetonide 0.1 % cream 1 applic topical BID Qty: 454 0RF ergocalciferol (vitamin D2) 2,000 UNIT tablet 2,000 unit PO DAILY Prempro 0.625-2.5 mg tablet 1 tab PO DAILY Qty: 90 3RF dextroamphetamine-amphetamine [Adderall] 20 mg tablet 20 mg PO DAILY MDD 1 capsule Qty: 28 0RF metoprolol succinate 50 mg tablet extended release 24 hr 50 mg PO DAILY Qty: 90 3RF Discharge Instructions Instructions: Diverticulosis (GEN), Colorectal Polyps (GEN), Diverticulosis D iet (GEN) Additional Instructions: Ashlyn, we are able to complete your colonoscopy today without any difficulty. I did find 2 polyps. Both of these were quite small, and they were removed without any issues. Both be sent off for testing, and once we know the nature of these polyps, that information will inform the timing of your next colonoscopy. Incidentally, you do have some diverticulosis. It is within the area of your colon known as sigmoid colon. This is the most common place. Although you do not have many diverticula, they are a little bit small mouth, and some of them do show some signs of fecaliths. I suppose this could be the source of your discomfort. I have attached some general information here about: Rectal polyps as well as diverticular disease. As soon as we have the results from the polyp analysis, I will be in touch with any other details. 1. If tolerated, consume a soft, low fiber diet for 1-2 days. 2[address] Do not drive, drink alcohol, operate machinery, make critical decisions, or do activities that require coordination or balance for 24 hours. 3. Because air was put into your colon during the procedure, expelling air from your rectum (passing gas or farting) is normal. 4. You may not have a bowel movement for 1-3 days because of the colonoscopy prep. This is normal. 5. Go directly to the emergency room if you notice any of the following: Develop chills (warm to touch), or if you have a thermometer and your temperature is above 101 Difficulty breathing or difficultly swallowing Persistent vomiting Severe abdominal pain, other than gas cramps Severe chest pain Black, tarry stools Any bleeding ? exceeding one tablespoon 6. Call your physician if the site where your intravenous was started becomes red, swollen, painful, and warm to touch. 7. Your physician has reviewed your pre-procedure medications. Please continue to take those medications as previously ordered. You will be given specific information/education regarding any changes to your medications before leaving. Stand Alone Forms: Anesthesia Discharge InstPaula Mauro (DSU) Activity:: Activity as Tolerated Diet:: As Tolerated Discharge Orders Discharge Orders: Discharge Order (Routine); Ordered 02/21/24 Ordered By: Baljeet Choe DS: Diagnosis Discharge Diagnosis (1) Encounter for screening colonoscopy: Status: Acute Asessment and Plan: Follow-up on polypectomy results
--- NOTE | 2024-02-21 12:03 | COLE_ITS ---
Date of service: 02/22/24 Time of Service: 11:23 Colonoscopy Report Date of procedure: 02/22/24 Pre-op diagnosis general: screening colonocsopy Post-op diagnosis procedure note: other (Diverticulosis, rectal polyps x 2) Procedure: colonoscopy with polypectomy Surgeon: Baljeet Choe Anesthesia Type: General:No Airway Estimated blood loss (mL): 5 Pathology: other (0.25 cm rectal polyps x 2) Complications: None Disposition: same day Indications: Ashlyn is a63 years old. She needs her next screening colonoscopy Prep: Miralax/Dulcolax Procedure Start Time: 10:48 Procedure End Time: 11:07 Retraction Time: 9 Findings: Sigmoid diverticulosis; 0.25 cm rectal polyps x 2 Procedure Description: After the induction of anesthesia, and with the patient in left lateral decubitus position, I began by performing an external anorectal exam.? Perineum and skin were normal, as was the anal verge.? There was no evidence of external hemorrhoids.? Next, I performed a digital rectal exam.? I did not appreciate any abnormal findings.? Next, I advanced a colonoscope into the rectal vault.? I performed retroflexion.? This was normal.? Using insufflation, I then advanced the colonoscope beyond the rectal folds and into the sigmoid colon before advancing towards the cecum.? There were occasional small mouth sigmoid diverticula, with some containing fecaliths. The scope was noted to be in the cecum by identification of the ileocecal valve and appendiceal orifice.? I then began withdrawing the colonoscope using repeated irrigation as necessary for full evaluation of the colonic mucosa. ?Once the scope was withdrawn to the level of the rectum, great care was taken to examine portions of the rectal folds.? In the upper portion of the rectal vault, just around 20 cm from the anus was a 0.25 cm polyp. This was flat, narrowband imaging was used to assist with examination. This polyp was removed with cold forceps. A few centimeters away was another polyp. This was about 0.25 cm as well. This was more pedunculated. This was also removed with cold forceps without any issues. Finally, the scope was withdrawn and the patient was brought to the same-day surgery recovery unit as the anesthetic wore off. ?The findings and instructions were shared with the patient prior to discharge. [place] Bowel Prep [place] Bowel Prep Right Colon: 2 Left Colon: 3 Transverse Colon: 3 Total Score: 8
[2024-02-22 09:17] VITALS: BP 152/87; PULSE 68; RESP 20; TEMP 36.6; O2SAT 100
[2024-02-22] MEDS: Lactated Ringers 1,000 ML 80 ML IV (09:19)
--- NOTE | 2024-02-22 09:41 | ANES.PREOP_ITS ---
General Info Date of Service Date Performed: 02/22/24 Height: 5 ft 7 in Weight: 79.6 kg Body Mass Index (BMI): 27.4 Surgical Procedure: Operation Date: 02/22/24 11:20 Proposed Procedure Side Surgeon juan alberto Choe MD Meds Allergies and Home Medications Allergies Allergy/AdvReac Type Severity Reaction Status Date / Time No Known Allergies Allergy Verified 02/22/24 09:15 Home Medication Medication Instructions Recorded ergocalciferol (vitamin D2) 50 mcg 2,000 unit PO DAILY 03/05/15 (2,000 unit) tablet triamcinolone acetonide 0.1 % 1 applic topical BID #454 grams 09/17/22 topical cream conj estrogen-medroxyprogesterone 1 tab PO DAILY #90 tab-caps 04/15/23 0.625 mg-2.5 mg tablet (Prempro) dextroamphetamine-amphetamine 20 20 mg PO DAILY #28 tabs 02/06/24 mg tablet (Adderall) metoprolol succinate 50 mg 50 mg PO DAILY #90 tabs 02/16/24 tablet,extended release 24 hr Current Visit Medications: Current Medications Generic Name Dose Route Start Last Admin Trade Name Freq PRN Reason Stop Dose Admin Hyoscyamine Sulfate 0.125 mg 02/21/24 12:04 Hyoscyamine 0.125 Mg Sl/Oral/Chew SL 03/22/24 12:03 DIRECTED PRN Ringer's Solution 1,000 mls @ 80 mls/hr 02/22/24 06:00 02/22/24 09:19 IV 02/22/24 23:59 80 mls/hr INFUSION MACIEL Administration IV Miscellaneous Supplies 1 each 02/22/24 06:00 Iv Access IV 02/22/24 23:59 DIRECTED MACIEL Ondansetron HCl 4 mg 02/21/24 12:04 Ondansetron 4 Mg/2 Ml Vial IVP 03/22/24 12:03 Q4H PRN PRN Nausea / Vomiting Sodium Chloride 0 ml 02/22/24 06:00 Normal Saline Flush 10 Ml Syr IV 02/22/24 23:59 PRN PRN Sodium Chloride 0 ml 02/22/24 06:00 Normal Saline 10 Ml Vial IJ 02/22/24 23:59 DIRECTED PRN Sterile Water 0 ml 02/22/24 06:00 Water,Injection,Sterile 10 Ml Vial IJ 02/22/24 23:59 DIRECTED PRN PFSH Active Problems Active Problems: Problem Status Onset Code FH ischemic heart disease Z82.49 Abnormal ECG R94.31 Irregular heartbeat I49.9 Pelvic pain R10.2 Rash R21 Surgical site infection T81.49XA Overweight E66.3 History of snoring Z87.898 Medical History Medical History Small bowel obstruction PSVT (paroxysmal supraventricular tachycardia) Hypokalemia Atrial fibrillation with rapid ventricular response F/U with cardiology 09/2023 Surgical History Surgical History History of section Spinal Fusion 08/26; [facility] ; C3-6 section Diagnostic Laproscopy [facility]; [facility] [employer] ADHESIONS Tobacco Smoking/Tobacco Use Status: Never Passive smoking exposure: No Second hand exposure: Yes Alcohol Alcohol Intake: current Alcohol intake frequency: a few times a month Alcohol type: wine Substance Use Substance use: Never Substance use type: does not use Vital Signs and Lab Results Vital Signs Most Recent Vital Signs in EMR: Most Recent Vital Signs Temp Pulse Resp BP Pulse Ox 36.6 C 68 20 152/87 H 100 02/22/24 09:17 02/22/24 09:17 02/22/24 09:17 02/22/24 09:17 02/22/24 09:17 Lab Results Blood Type / Crossmatch: No Data to Display Complete Blood Count: No Data to Display Complete Metabolic Panel: No Data to Display Liver Function Panel: No Data to Display Coagulation Panel: No Data to Display Cardiac Panel: No Data to Display Arterial Blood Gas: No Data to Display Venous Blood Gas: No Data to Display Pancreas Panel: No Data to Display Thyroid Panel: No Data to Display Infectious Disease: No Data to Display Blood Cultures: No Data to Display Toxicology Panel: No Data to Display Imaging and Studies Imaging and Studies Study information below may be from another EMR and interpreted by another provider. Please see original notes in EMR for more complete details. EKG Summary: 04/04: sinus rhythm. Echocardiogram Summary: 2017: LVEF 65%. mild MR, myxomatous leaflets. Anesthesia Assessment and Plan Anesthesia History Personal History: No History of Anesthesia Complications Family History: No Family History of Anesthesia Complications Exercise Tolerance Exercise Tolerance: Metabolic Equivalents>4 Pertinent Negatives Pertinent Negatives: No Symptoms of GERD Cardiac & Pulmonary Exam Cardiac Exam: Normal S1/S2 Heart Sounds Pulmonary Exam: Clear Bilateral Breath Sounds Implantable Cardiac Device Does patient have a Pacemaker or an ICD?: No Airway Exam Known Difficult Airway: No Mallampati Class: 2 Mouth Opening: Normal (> 3cm) Thyromental Distance: Greater than 3 cm Neck Range of Motion: Full ROM Neck Circumference: Normal Teeth Condition: Normal Dentition ASA Classification ASA Score: ASA 2 Emergency Case?: No NPO Status NPO Status: NPO Clears >2 hours, Solids >8 hours Anesthesia Plan Resuscitation Status: Full Code Anesthesia Technique: General Anesthesia Airway Planned: Natural Airway Monitors Used: Standard Monitors
[2024-02-22 09:44] VITALS: BMI 27.4
--- NOTE | 2024-02-22 11:06 | BOWEL_PTH ---
PATIENT: Ashlyn Nava LOC: [facility] U#:[id number] AGE/SX: 63/F ROOM: RE02/22/[address]: Baljeet Choe MD : 1960 BED: DIS: 02/22/2024 SPEC #: [id number] RECD: 02/22/24 12:54 STATUS: NEWMyles REQ #: [id number] ANAIS: 02/22/24 11:[address]: Baljeet Choe DEPT: Surgical Specimen RECD BY: Corrie Adams ENTERED: 02/22/24 12:55 SP TYPE: Bowel OTHR DR: Robb Esparza MD Tissues: 1 - BIOPSY BOWEL Procedures: GROSS AND MICRO LEVEL 4 Comments: [id number]
[2024-02-22 11:11] VITALS: BP 113/66; PULSE 70; RESP 16; TEMP 36.5; O2SAT 98
[2024-02-22 11:36] VITALS: BP 140/84; PULSE 61; RESP 16; TEMP 36.5; O2SAT 99
--- NOTE | 2024-02-22 13:33 | W.ANESPOSTOP ---
Postoperative Evaluation Date, Time and Location Date Performed: 02/22/24 Time Performed: 11:15 Patient Location: Day Surgery Unit Vital Signs Most Recent Imported Vital Signs: Most Recent Vital Signs Temp Pulse Resp BP Pulse Ox 36.5 C 61 16 140/84 99 02/22/24 11:36 02/22/24 11:36 02/22/24 11:36 02/22/24 11:36 02/22/24 11:36 Pain Score Most Recent Pain Score: Most Recent Pain Score Pain Level 0 02/22/24 11:36 Assessment Mental Status: Awake (Alert & Oriented to Patient Baseline) Airway and Respiratory Function: Patent airway with normal (patient baseline) respiratory exam Cardiovascular Function: Hemodynamically Stable Hydration Status: Adequately Hydrated Nausea & Vomiting: No Nausea or Vomiting Pain: Pt. Denies Any Pain Peripheral Nerve Block: Patient did not receive a nerve block
== END 2024-02-22 11:55 | disposition home or self-care (01) ==
LOC: SUR 08:49
PROVIDERS: PCP Family Medicine; Visit Provider Surgery
PROC: 0DJD8ZZ Inspection of Lower Intestinal Tract, Via Natural or Artificial Opening Endoscopic (ICD-10-PCS; CPT 45378; principal; 2024-02-22 11:15)
DX: Z12.11 Encounter for screening for malignant neoplasm of colon (principal); D12.5 Benign neoplasm of sigmoid colon; K57.30 Diverticulosis of large intestine without perforation or abscess without bleeding
CPT/HCPCS: 45380; 88305; J2704

== ENCOUNTER → 2024-03-07 19:46 | Outpatient (CLI) | payer OTHER, SELFPAY ==
--- NOTE | 2024-03-07 10:49 | DI.RAD_ITS ---
Exam(s) XR PELVIS AP EXAM: XR PELVIS AP CLINICAL HISTORY: ongoing pelvic pain; neg vag u/s, CT scan R10.2. TECHNIQUE: 2D digital imaging was performed.Two images were obtained. COMPARISON: CR XR ABDOMEN FLAT UPRIGHT from 03/19/2022 FINDINGS: BONES: No acute fracture is present. No bony destructive lesion is seen. JOINTS: No dislocation present. No joint space narrowing is present. SOFT TISSUE: Normal. IMPRESSION: Unremarkable radiographs of the pelvis. DATA REPOSITORY: RADIATION DOSE DELIVERED:
== END ==
PROVIDERS: PCP Family Medicine; Visit Provider Family Medicine
DX: R10.2 Pelvic and perineal pain (principal)
CPT/HCPCS: 72170

== ENCOUNTER 2024-06-11 11:29 | Outpatient (CLI) | payer OTHER, SELFPAY ==
--- NOTE | 2024-06-11 11:15 | DI.RAD_ITS ---
Exam(s) XR CHEST 2V PA LATERAL EXAM: XR CHEST 2V PA LATERAL CLINICAL HISTORY: evaluate pathology TECHNIQUE: 2D digital imaging was performed of the chest. Two images were obtained. PA and lateral views were obtained. COMPARISON: CR XR CHEST 2V PA LATERAL from 02/27/2022 FINDINGS: MEDIASTINUM: Normal. HEART: Normal. PULMONARY VASCULATURE: Normal. LUNGS: There is an infiltrate in the anterior aspect of the left upper lobe or possible superior aspe ct of the lingula. The lungs are otherwise clear. PLEURAL SPACE: No pleural effusion or pneumothorax. BONE:Within normal limits for the patient's age. There is again seen a right convex thoracic scolios is. ACDF in the lower cervical spine is present. OTHER FINDINGS:Normal. IMPRESSION: Pneumonia involving the left lung. DATA REPOSITORY: RADIATION DOSE DELIVERED:
--- NOTE | 2024-06-11 11:52 | DI.VRAD_ITS ---
PROCEDURE INFORMATION: Exam: XR Chest Exam date and time: 06/11/2024 11:37 AM Age: 64 years old Clinical indication: Other: Cough, evaluate pathology TECHNIQUE: Imaging protocol: Radiologic exam of the chest. Views: 2 views. COMPARISON: CR XR CHEST 2V PA LATERAL 02/27/2022 11:08 AM FINDINGS: Lungs: Airspace consolidation within the lateral left upper lobe and lingula, compatible with pneumonia. Recommend follow-up to resolution. Right lung clear. Pleural spaces: Unremarkable. No pleural effusion. No pneumothorax. Heart/Mediastinum: Unremarkable. No cardiomegaly. Bones/joints: Scoliotic curvature thoracic spine. IMPRESSION: Airspace consolidation within the lateral left upper lobe and lingula, compatible with pneumonia. Recommend follow-up to resolution. Dictated and Authenticated by: Patience Ruggiero MD. Ordering:PATSY Garnett MD
== END 2024-06-11 11:49 ==
PROVIDERS: PCP Family Medicine; Visit Provider Nurse Practitioner Family
DX: R05.9 Cough, unspecified (principal)
CPT/HCPCS: 71046

== ENCOUNTER 2024-10-31 01:06 | Outpatient (CLI) | payer OTHER, SELFPAY ==
--- NOTE | 2024-10-31 07:45 | DI.MAMMO_ITS ---
Exam(s) MAMMO SCREENING EXAM: MAMMO SCREENING CLINICAL HISTORY: screening TECHNIQUE: Bilateral full field digital CC and MLO mammographic images were obtained with 3D tomosyn thesis and utilizing computer aided detection (CAD). COMPARISON: Available for comparison. FINDINGS: Masses/Architectural Distortion: None seen. Microcalcifications: No suspicious pleomorphic-type are seen. Skin Thickening/Nipple Retraction: None. IMPRESSION: 1. No significant interval change with no specific features of malignancy noted. 2. Unless there is more urgent need, screening mammography is recommended, as per [employer] guidelines. BI-RADS Category 1 - Negative Breast Density - Category C - Heterogeneously dense Breast density category C or D implies that the patient has dense breast tissue. Dense breast tissue is very common and is not abnormal but dense breast tissue can make it harder to find cancer on a ma mmogram. Also, dense breast tissue may increase their breast cancer risk. This information about the result of the mammogram report was provided to the patient to raise their awareness. Use this report when you speak with the patient about their risks for breast cancer, which includes their family hist ory. At that time, you may recommend for more screening tests (Ultrasound or MRI) as they might be us eful based on their risk. A negative radiographic report should not delay biopsy if a dominant or clinically suspicious mass is present. Up to ten percent of cancers are not identified on mammography. A negative report may reinforce clinical impression. Adenosis and dense breasts may obscure an underlying neoplasm. False positive reports average 6 to 10%. Patient will receive a letter notifying them of these results.
== END 2024-10-31 01:26 ==
LOC: DI 01:06
PROVIDERS: PCP Family Medicine; Visit Provider Obstetrics & Gynecology
DX: Z12.31 Encounter for screening mammogram for malignant neoplasm of breast (principal); R92.333 Mammographic heterogeneous density, bilateral breasts
CPT/HCPCS: 77063; 77067

== ENCOUNTER 2025-04-28 12:35 | Outpatient (CLI) | payer OTHER, SELFPAY ==
[2025-04-28 14:37] LABS: ESR 1 mm/hr (0-30)
[2025-04-28 15:37] LABS: C-Reactive Protein < 0.50 mg/dL (<or=0.5)
== END 2025-04-28 12:36 | disposition home or self-care (01) ==
LOC: LBO 12:35
PROVIDERS: PCP Family Medicine; Visit Provider Family Medicine
DX: R21 Rash and other nonspecific skin eruption (principal); R41.89 Other symptoms and signs involving cognitive functions and awareness
CPT/HCPCS: 36415; 85652; 86140